=== PATIENT | female | born 1960 | race Two or more races ===

== ENCOUNTER 2022-05-15 10:35 | Emergency (ER) | payer OTHER ==
[~2022-05-15] VITALS: Ht 152.4 cm; Wt 85.8 kg
[2022-05-15 10:48] VITALS: BP 144/84
[2022-05-15 11:28] LABS: Basophils # (auto) 0.1 10 ^3/uL (0-0.2); Basophils % (auto) 0.7 % (0.0-2.0); Eosinophils # (auto) 0.1 10 ^3/uL (0-0.8); Eosinophils % (auto) 0.8 % (0.0-7.0); Hematocrit 42.1 % (36.0-46.0); Hemoglobin 13.9 g/dL (12.2-16.2); Lymphocytes # (auto) 2.8 10 ^3/uL (0.4-5.4); Lymphocytes % (auto) 25.5 % (10.0-50.0); Mean Corpuscular Hemoglobin 29.7 pg (28.0-32.0); Mean Corpuscular Hgb Conc. 32.9 g/dL (32.0-36.0); Mean Corpuscular Volume 90.5 fL (80.0-100.0); Monocytes # (auto) 0.5 10 ^3/uL (0-1.3); Monocytes % (auto) 4.4 % (0.0-12.0); Neutrophils # (auto) 7.5 10 ^3/uL (1.6-8.6); Neutrophils % (auto) 68.6 % (37.0-80.0); Red Blood Cells 4.66 10^6/uL (4.0-5.20); Red Cell Distribution Width 13.4 % (11.8-14.3)
[2022-05-15 11:29] LABS: Urine Bacteria FEW /hpf (None Seen); Urine Blood Negative /uL (Negative); Urine Specific Gravity 1.007 (1.001-1.035); Urine WBC 4 /hpf (0 - 5)
[2022-05-15 11:44] LABS: Albumin 3.7 g/dL (3.4-5.0); Calcium 9.1 mg/dL (8.5-10.1); Potassium 4.4 mmol/L (3.5-5.1)
[2022-05-15 11:47] LABS: BUN/Creatinine Ratio 19.4; Bilirubin, Total 0.6 mg/dL (0.2-1.0); Total Protein 6.8 g/dL (6.4-8.2)
== END 2022-05-15 22:05 | disposition left against medical advice (07) ==
LOC: ER 10:35
DX: R10.30 Lower abdominal pain, unspecified (principal); R19.7 Diarrhea, unspecified; R11.0 Nausea; R07.89 Other chest pain; Z53.21 Procedure and treatment not carried out due to patient leaving prior to being seen by health care provider
CPT/HCPCS: 36415; 80053; 81001; 83690; 85025; 93005

== ENCOUNTER → 2023-10-25 | Outpatient (CLI) | payer OTHER ==
[2023-10-25 08:19] LABS: Basophils # (auto) 0.1 10 ^3/uL (0-0.2); Basophils % (auto) 0.7 % (0.0-2.0); Eosinophils # (auto) 0.2 10 ^3/uL (0-0.8); Eosinophils % (auto) 1.8 % (0.0-7.0); Hematocrit 44.6 % (36.0-46.0); Hemoglobin 14.7 g/dL (12.2-16.2); Lymphocytes # (auto) 2.5 10 ^3/uL (0.4-5.4); Lymphocytes % (auto) 26.7 % (10.0-50.0); Mean Corpuscular Hemoglobin 30.1 pg (28.0-32.0); Mean Corpuscular Volume 91.2 fL (80.0-100.0); Monocytes # (auto) 0.4 10 ^3/uL (0-1.3); Monocytes % (auto) 4.1 % (0.0-12.0); Neutrophils # (auto) 6.2 10 ^3/uL (1.6-8.6); Neutrophils % (auto) 66.7 % (37.0-80.0); Nucleated Red Blood Cells % 0.1 %; Red Blood Cells 4.89 10^6/uL (4.0-5.20); Red Cell Distribution Width 14.3 % (11.8-14.3); White Blood Cell 9.3 10^3/uL (4.4-10.8)
[2023-10-25 08:36] LABS: Urine Bacteria FEW /hpf (None Seen); Urine Blood Negative /uL (Negative); Urine Clarity HAZY (Clear); Urine Color Yellow (Yellow); Urine Hyaline Cast FEW /lpf (0 - 2); Urine Mucus FEW (None Seen); Urine Protein, UAD Negative (Negative); Urine Urobilinogen Normal (Negative); Urine WBC 104 /hpf (0 - 5)
[2023-10-25 08:50] LABS: Alanine Aminotransferase 32 U/L (7-40); Albumin 4.8 g/dL (3.2-4.8); Alkaline Phosphatase 96 U/L (46-116); Anion Gap 7 (5-15); Aspartate Aminotransferase 19 U/L (13-40); BUN/Creatinine Ratio 20.3 (10.0-20.0); Bilirubin, Total 0.9 mg/dL (0.2-1.0); Blood Urea Nitrogen 14 mg/dL (9-23); Calcium 9.8 mg/dL (8.5-10.1); Carbon Dioxide 28 mmol/L (20-30); Chloride 106 mmol/L (98-107); Cholesterol 178 mg/dL (< 200); Glucose 139 mg/dL (74-106); HDL Cholesterol 53 mg/dL (40-59); LDL Cholesterol 115 mg/dL (< 100); Potassium 4.8 mmol/L (3.5-5.1); Sodium 141 mmol/L (136-145); Total Protein 7.1 g/dL (5.7-8.2); Triglycerides 188 mg/dL (< 150)
[2023-10-25 08:53] LABS: Folate (Folic Acid) > 24.00 ng/mL (>5.38)
[2023-10-25 09:08] LABS: Magnesium 2.1 mg/dL (1.6-2.6)
[2023-10-25 09:09] LABS: Uric Acid 5.5 mg/dL (3.1-7.8)
== END | disposition home or self-care (01) ==
LOC: LAB 08:00
PROVIDERS: ATTEND Internal Medicine
DX: E61.2 Magnesium deficiency (principal); R78.89 Finding of other specified substances, not normally found in blood; E78.9 Disorder of lipoprotein metabolism, unspecified; R68.89 Other general symptoms and signs; R94.6 Abnormal results of thyroid function studies; E79.0 Hyperuricemia without signs of inflammatory arthritis and tophaceous disease; R82.90 Unspecified abnormal findings in urine; R82.79 Other abnormal findings on microbiological examination of urine; R82.991 Hypocitraturia; E85.9 Amyloidosis, unspecified; D51.9 Vitamin B12 deficiency anemia, unspecified
CPT/HCPCS: 36415; 80053; 80061; 81001; 82306; 82607; 82746; 83036; 83735; 84443; 84550; 85025; 87086

== ENCOUNTER → 2024-02-19 | Outpatient (CLI) | payer OTHER ==
[2024-02-19 08:47] LABS: Basophils # (auto) 0.1 10 ^3/uL (0-0.2); Basophils % (auto) 0.8 % (0.0-2.0); Eosinophils # (auto) 1.4 10 ^3/uL (0-0.8); Hematocrit 41.2 % (36.0-46.0); Hemoglobin 14.1 g/dL (12.2-16.2); Lymphocytes # (auto) 2.8 10 ^3/uL (0.4-5.4); Lymphocytes % (auto) 25.2 % (10.0-50.0); Mean Corpuscular Hemoglobin 31.2 pg (28.0-32.0); Mean Corpuscular Hgb Conc. 34.2 g/dL (32.0-36.0); Monocytes # (auto) 0.4 10 ^3/uL (0-1.3); Monocytes % (auto) 3.4 % (0.0-12.0); Neutrophils # (auto) 6.3 10 ^3/uL (1.6-8.6); Neutrophils % (auto) 57.6 % (37.0-80.0); Nucleated Red Blood Cells % 0.1 %; Red Blood Cells 4.53 10^6/uL (4.0-5.20); Red Cell Distribution Width 14.1 % (11.8-14.3); White Blood Cell 10.9 10^3/uL (4.4-10.8)
[2024-02-19 09:10] LABS: Urine Bacteria FEW /hpf (None Seen); Urine Blood Negative /uL (Negative); Urine Budding Yeast OCCASIONAL /hpf (None Seen); Urine Clarity Clear (Clear); Urine Color Light-Yellow (Yellow); Urine Protein, UAD Negative (Negative); Urine Specific Gravity 1.018 (1.001-1.035); Urine Urobilinogen Normal (Negative); Urine WBC 13 /hpf (0 - 5); Urine pH 5.5 (5.0-9.0)
[2024-02-19 09:35] LABS: Alanine Aminotransferase 25 U/L (7-40); Albumin 4.2 g/dL (3.2-4.8); Alkaline Phosphatase 93 U/L (46-116); Anion Gap 7 (5-15); Aspartate Aminotransferase 15 U/L (13-40); BUN/Creatinine Ratio 24.2 (10.0-20.0); Bilirubin, Total 0.7 mg/dL (0.2-1.0); Blood Urea Nitrogen 16 mg/dL (9-23); Calcium 9.4 mg/dL (8.5-10.1); Carbon Dioxide 25 mmol/L (20-30); Chloride 109 mmol/L (98-107); Cholesterol 192 mg/dL (< 200); Glucose 165 mg/dL (74-106); HDL Cholesterol 49 mg/dL (40-59); LDL Cholesterol 121 mg/dL (< 100); Potassium 4.1 mmol/L (3.5-5.1); Sodium 141 mmol/L (136-145); Total Protein 6.4 g/dL (5.7-8.2); Triglycerides 251 mg/dL (< 150)
[2024-02-19 10:14] LABS: Uric Acid 6.1 mg/dL (3.1-7.8)
[2024-02-19 11:44] LABS: Folate (Folic Acid) 17.83 ng/mL (>5.38)
== END | disposition home or self-care (01) ==
LOC: LAB 08:17
PROVIDERS: ATTEND Internal Medicine
DX: R73.09 Other abnormal glucose (principal); R79.89 Other specified abnormal findings of blood chemistry; R68.89 Other general symptoms and signs; R94.4 Abnormal results of kidney function studies; E55.9 Vitamin D deficiency, unspecified; R82.90 Unspecified abnormal findings in urine; R82.79 Other abnormal findings on microbiological examination of urine; D51.9 Vitamin B12 deficiency anemia, unspecified; E61.2 Magnesium deficiency
CPT/HCPCS: 36415; 80053; 80061; 81001; 82306; 82607; 82746; 83036; 84443; 84550; 85025; 87086; 87088; 87147

== ENCOUNTER → 2024-05-01 | Outpatient (CLI) | payer OTHER ==
[2024-05-01 08:47] LABS: Basophils # (auto) 0.1 10 ^3/uL (0-0.2); Basophils % (auto) 0.5 % (0.0-2.0); Eosinophils # (auto) 1.4 10 ^3/uL (0-0.8); Eosinophils % (auto) 12.5 % (0.0-7.0); Hematocrit 44.3 % (36.0-46.0); Hemoglobin 15.1 g/dL (12.2-16.2); Lymphocytes # (auto) 2.8 10 ^3/uL (0.4-5.4); Lymphocytes % (auto) 25.2 % (10.0-50.0); Mean Corpuscular Hemoglobin 31.1 pg (28.0-32.0); Mean Corpuscular Volume 91.4 fL (80.0-100.0); Monocytes # (auto) 0.4 10 ^3/uL (0-1.3); Monocytes % (auto) 3.9 % (0.0-12.0); Neutrophils # (auto) 6.5 10 ^3/uL (1.6-8.6); Neutrophils % (auto) 57.9 % (37.0-80.0); Nucleated Red Blood Cells % 0.1 %; Platelet Count (auto) 259 10^3/uL (140-450); Red Blood Cells 4.85 10^6/uL (4.0-5.20); Red Cell Distribution Width 13.4 % (11.8-14.3); White Blood Cell 11.2 10^3/uL (4.4-10.8)
[2024-05-01 09:29] LABS: Alanine Aminotransferase 24 U/L (7-40); Alkaline Phosphatase 89 U/L (46-116); Anion Gap 8 (5-15); BUN/Creatinine Ratio 18.3 (10.0-20.0); Blood Urea Nitrogen 13 mg/dL (9-23); Calcium 9.9 mg/dL (8.7-10.4); Carbon Dioxide 26 mmol/L (20-30); Chloride 106 mmol/L (98-107); Glucose 128 mg/dL (74-106); LDL Cholesterol 103 mg/dL (< 100); Potassium 4.6 mmol/L (3.5-5.1); Sodium 140 mmol/L (136-145); Triglycerides 283 mg/dL (< 150)
[2024-05-01 09:30] LABS: Albumin 4.6 g/dL (3.2-4.8); Aspartate Aminotransferase 16 U/L (13-40); Bilirubin, Total 0.8 mg/dL (0.2-1.0); Cholesterol 181 mg/dL (< 200); HDL Cholesterol 46 mg/dL (40-59)
== END | disposition home or self-care (01) ==
LOC: LAB 08:18
PROVIDERS: ATTEND Internal Medicine
DX: E11.3219 Type 2 diabetes mellitus with mild nonproliferative diabetic retinopathy with macular edema, unspecified eye (principal); E78.00 Pure hypercholesterolemia, unspecified; E55.9 Vitamin D deficiency, unspecified; E66.8 Other obesity
CPT/HCPCS: 36415; 80053; 80061; 82306; 83036; 85025

== ENCOUNTER 2024-11-12 09:33 | Inpatient (IN) | payer OTHER ==
[~2024-11-12] VITALS: Ht 152.4 cm; Wt 88.5 kg
[~2024-11-12 09:33] MED LIST: GABA-1250 PO; METF-372 PO; SEMA2INJ3 SC
[2024-11-12 10:31] LABS: Urine Bacteria FEW /hpf (None Seen); Urine Blood 2+ /uL (Negative); Urine Budding Yeast OCCASIONAL /hpf (None Seen); Urine Clarity Clear (Clear); Urine Color Light-Yellow (Yellow); Urine Mucus FEW (None Seen); Urine Protein, UAD Negative (Negative); Urine Specific Gravity 1.014 (1.001-1.035); Urine Squamous Epithelial Cell FEW /hpf (<5); Urine Urobilinogen Normal (Negative); Urine WBC 13 /HPF (0-5)
[2024-11-12 10:40] LABS: Basophils # (auto) 0.1 10 ^3/uL (0-0.2); Basophils % (auto) 0.4 % (0.0-2.0); Eosinophils # (auto) 0.6 10 ^3/uL (0-0.8); Eosinophils % (auto) 4.9 % (0.0-7.0); Hematocrit 43.8 % (36.0-46.0); Hemoglobin 14.5 g/dL (12.2-16.2); Lymphocytes # (auto) 2.6 10 ^3/uL (0.4-5.4); Lymphocytes % (auto) 20.3 % (10.0-50.0); Mean Corpuscular Hemoglobin 30.9 pg (28.0-32.0); Mean Corpuscular Hgb Conc. 33.1 g/dL (32.0-36.0); Mean Corpuscular Volume 93.3 fL (80.0-100.0); Monocytes # (auto) 0.4 10 ^3/uL (0-1.3); Monocytes % (auto) 3.4 % (0.0-12.0); Neutrophils # (auto) 9.2 10 ^3/uL (1.6-8.6); Platelet Count (auto) 236 10^3/uL (140-450); Red Blood Cells 4.69 10^6/uL (4.0-5.20); Red Cell Distribution Width 13.6 % (11.8-14.3)
--- NOTE | 2024-11-12 10:41 | ED.PDOC ---
General HPI Comments 64 year old female presents to the ED with a chief complaint of LT flank pain onset today. Patient states she woke up noticed experiencing LT flank pain, urinary urgency, nausea. Patient has experienced kidney stones in the past and states pain feels similar. She had an appointment with her PCP this morning, was sent to ED due to pain. Denies any PMHx as well as vomiting, diarrhea, fever, chills, dysuria, hematuria, chest pain, shortness of breath, dizziness. No other symptoms or modifying factors present at this time. Chief Complaint: Urinary Time Seen by MD: 10:20 Reviewed notes: Medications, Allergies Allergies: Coded Allergies: NO KNOWN ALLERGIES (Unverified , 05/15/22) Information Source: Patient, Relative Mode of Arrival: Ambulatory Severity: Moderate Timing: Hours Duration: Since onset Prehospital treatment: None Onset: Spontaneous Symptoms: Urgency, Other History of: Kidney stone Location: (L)Flank Modifying factors: None associated signs and symptoms: Nausea, Flank Pain, Urgency Past Medical History PAST MEDICAL HISTORY: Kidney Stones Surgical History: Denies all surgeries PORTFOLIO ADMINISTRATOR History: No Pertinent PORTFOLIO ADMINISTRATOR History Family History Family History: Reviewed,noncontributory to illness, No family hx of Cancer, No family hx of DM, No family hx of Heart sony, No family hx of HTN, No family hx ofKidney sony, No family hx of Liver sony, No family hx of Lung sony, No family hx of Stroke Social History Smoker: Non-Smoker Alcohol: Denies ETOH Use Drugs: Denies Drug Use Lives In: Home Constitutional: denies: chills, diaphoresis, fatigue, fever, malaise, sweats, weakness, others EENTM: denies: blurred vision, double vision, ear bleeding, ear discharge, ear drainage, ear pain, ear ringing, eye pain, eye redness, hearing loss, mouth pain, mouth swelling, nasal discharge, nose bleeding, nose congestion, nose pain, photophobia, tearing, throat pain, throat swelling, voice changes, others Respiratory: denies: cough, hemoptysis, orthopnea, SOB at rest, shortness of breath, SOB with excertion, stridor, wheezing, others Cardiovascular: denies: chest pain, dizzy spells, diaphoresis, Dyspnea on exertion, edema, irregular heart beat, left arm pain, lightheadedness, palpitations, PND, syncope, others Gastrointestinal: reports: nausea; denies: abdomen distended, abdominal pain, blood streaked bowels, constipated, diarrhea, dysphagia, difficulty swallowing, hematemesis, melena, poor appetite, poor fluid intake, rectal bleeding, rectal pain, vomiting, others Genitourinary: reports: flank pain, urgency; denies: abnormal vagina bleeding, burning, dyspareunia, dysuria, frequency, hematuria, incontinence, pain, , vagina discharge, others Neurological: denies: dizziness, fainting, headache, left sided numbness, left sided weakness, numbness, paresthesia, pre-existing deficit, right sided numbness, right sided weakness, seizure, speech problems, tingling, tremors, weakness, others Musculoskeletal: denies: back pain, gout, joint pain, joint swelling, muscle pain, muscle stiffness, neck pain, others Integumetry: denies: bruises, change in color, change in hair/nails, dryness, laceration, lesions, lumps, rash, wounds, others Allergic/Immunocompromised: denies: Difficulty Healing, Frequent Infections, Hives, Itching, others Hematologic/Lymphatic: denies: anemia, blood clots, easy bleeding, easy bruising, swollen glands, others Endocrine: denies: excessive hunger, excessive sweating, excessive thirst, excessive urination, flushing, intolerance to cold, intolerance to heat, unexplained weight gain, unexplained weight loss, others Psychiatric: denies: anxiety, bipolar disorder, depression, hopeless, panic disorder, schizophrenia, sleepless, suicidal, others All Other Systems: Reviewed and Negative Physical Exam General Appearance: Moderate Distress, Normal, Other (appears uncomfortable) HEENT: Normal ENT Inspection, Pharynx Normal, TMs Normal Neck: Full Range of Motion, Non-Tender, Normal, Normal Inspection Respiratory: Chest Non-Tender, Lungs Clear, No Accessory Muscle Use, No Respiratory Distress, Normal Breath Sounds Cardiovascular: No Edema, No JVD, No Murmur, No Gallop, Normal Peripheral Pulses, Regular Rate/Rhythm Breast Exam: Deferred Gastrointestinal: No Organomegaly, Tenderness (LT CVA) Genitalia: Deferred Pelvic: Deferred Rectal: Deferred Extremities: No calf tenderness, Normal capillary refill, Normal inspection, Normal range of motion, Non-tender, No pedal edema Musculoskeletal : Apperance: Normal Neurologic: Alert, resort manager II-XII nml as Tested, No Motor Deficits, Normal Affect, Normal Mood, No Sensory Deficits Cerebellar Function: Normal Reflexes: Normal Skin: Dry, Normal Color, Warm Lymphatic: No Adenopathy Was a procedure done? Was a procedure done?: No Differential Diagnosis Kidney stone (Female): Cholelithiasis, Musculoskeletal pain, Ovarian torsion, Pancreatitis, Pyelonephritis, Renal failure, Strain, Urinary obstruction, Urolithiasis Kidney stone (Male): N/A Penile/Scrotal: N/A Urinary Problem (Male): N/A Urinary Problem (Female): PID, Pyelonephritis, Urinary retention, Urolithiasis X-Ray, Labs, Meds, VS Vital Signs Date Time Temp Pulse Resp B/P (MAP) Pulse Ox O2 Delivery O2 Flow Rate FiO2 11/12/24 11:05 90 16 98 Room Air* 0 21 11/12/24 10:58 90 16 139/105 11/12/24 10:51 98.0 90 16 139/105 (116) 97 98.0 11/12/24 10:51 90 16 97 Room Air 11/12/24 10:07 97.8 92 18 144/63 (90) 98 97.8 Lab Test 11/12/24 11:53 11/12/24 10:20 11/12/24 10:00 Range/Units Troponin I High Sensitivity < 3 L < 3 L </=34 ng/L White Blood Count 13.0 H 4.4-10.8 10^3/uL Red Blood Count 4.69 4.0-5.20 10^6/uL Hemoglobin 14.5 12.2-16.2 g/dL Hematocrit 43.8 36.0-46.0 % Mean Corpuscular Volume 93.3 80.0-100.0 fL Mean Corpuscular Hemoglobin 30.9 28.0-32.0 pg Mean Corpuscular Hemoglobin Concent 33.1 32.0-36.0 g/dL Red Cell Distribution Width 13.6 11.8-14.3 % Platelet Count 236 140-450 10^3/uL Mean Platelet Volume 9.5 6.9-10.8 fL Neutrophils (%) (Auto) 71.0 37.0-80.0 % Lymphocytes (%) (Auto) 20.3 10.0-50.0 % Monocytes (%) (Auto) 3.4 0.0-12.0 % Eosinophils (%) (Auto) 4.9 0.0-7.0 % Basophils (%) (Auto) 0.4 0.0-2.0 % Neutrophils # (Auto) 9.2 H 1.6-8.6 10 ^3/uL Lymphocytes # (Auto) 2.6 0.4-5.4 10 ^3/uL Monocytes # (Auto) 0.4 0-1.3 10 ^3/uL Eosinophils # (Auto) 0.6 0-0.8 10 ^3/uL Basophils # (Auto) 0.1 0-0.2 10 ^3/uL Nucleated Red Blood Cells 0.0 % Sodium Level 140 136-145 mmol/L Potassium Level 4.6 3.5-5.1 mmol/L Chloride Level 111 H 98-107 mmol/L Carbon Dioxide Level 20 20-31 mmol/L Anion Gap 9 5-15 Blood Urea Nitrogen 15 9-23 mg/dL Creatinine 0.66 0.550-1.02 mg/dL Glomerular Filtration Rate Calc 97 >90 mL/min BUN/Creatinine Ratio 22.7 H 10.0-20.0 Serum Glucose 143 H 74-106 mg/dL Lactic Acid Level 1.8 0.4-2.0 mmol/L Calcium Level 9.6 8.7-10.4 mg/dL Urine Color Light-yellow Yellow Urine Clarity Clear Clear Urine pH 5.0 5.0-9.0 Urine Specific [place] 1.014 1.001-1.035 Urine Protein Negative Negative Urine Ketones Negative Negative Urine Blood 2+ H Negative /uL Urine Nitrite 1+ H Negative Urine Bilirubin Negative Negative Urine Urobilinogen Normal Negative mg/dL Urine Leukocyte Esterase 2+ Negative /uL Urine RBC 29 0 - 4 /hpf Urine Microscopic WBC 13 H 0-5 /HPF Urine Squamous Epithelial Cells Few <5 /hpf Urine Bacteria Few H None Seen /hpf Urine Mucus Few None Seen Urine Yeast (Budding) Occasional None Seen /hpf Urine Glucose Normal Normal mg/dL Current Medications Medications (Trade) Dose Ordered Sig/Kenji Route Start Time Stop Time Status Last Admin Sodium Chloride 1,000 ml @ 1,000 mls/hr Q1H ONCE IV 11/12/24 10:30 11/12/24 11:29 DC 11/12/24 10:55 Ondansetron HCl (Zofran) 4 mg ONCE ONCE IV 11/12/24 10:30 11/12/24 10:37 DC 11/12/24 10:58 Morphine Sulfate 4 mg ONCE ONCE IV 11/12/24 10:30 11/12/24 10:37 DC 11/12/24 10:58 Ketorolac Tromethamine (Toradol Injection) 15 mg ONCE ONCE IV 11/12/24 10:30 11/12/24 10:37 DC 11/12/24 10:58 [place] [id number] Ph: [phone] DIAGNOSTIC IMAGING Diagnostic Imaging Report : [id number] Signed PATIENT: IVONNE MARTINEZ ACCT: [id number] UNIT: [id number] : 1960 LOC: ER ROOM / BED: / AGE / SEX: 64 / F ADM STATUS: REG ER SERVICE 1022 ORDERING PHYSICIAN: JM GILL MD PROCEDURE(s): ABPL - CT AB PEL WO CON-NO ORAL OR IV REASON: left flank pain ORDER NUMBER(s): [id number], ACCESSION NUMBER(s): [id number] CT ABDOMEN AND PELVIS WITHOUT CONTRAST CLINICAL HISTORY: left flank pain TECHNIQUE: Multiple contiguous axial images of the abdomen and pelvis without intravenous contrast. The images were reformatted degenerate coronal and sagittal reconstructions. All CT scans at this medical facility are performed using dose modulation techniques as appropriate to a performed exam including the following:Automated exposure control was utilized; adjustment of the MA and/or KV according to patient size; and use of iterative reconstruction technique. Radiation Dose Information: CT Dose: CTDI volume is 20.81 mGy. Dose-length product is 1229.31 mGy*cm Comparison: None FINDINGS: Evaluation of the abdomen and pelvis is limited without intravenous contrast. There is a 1 cm calculus at the left ureteropelvic junction. There is moderate left hydronephrosis. There is no right renal calculus. There is no right hydronephrosis. There is no evidence of a distal ureteral calculus or hydroureter. There is a 2.5 cm left renal cyst. The liver, gallbladder, pancreas, adrenal glands, and spleen appear within normal limits. There is no gross evidence of abdominal lymphadenopathy. There is no free fluid or free air. The stomach grossly appears unremarkable. The small and large bowel loops demonstrate normal caliber and distribution. There are few scattered diverticula in the colon without evidence of acute diverticulitis. The abdominal aorta and IVC appear within normal limits. The bladder appears unremarkable for the degree of distention. Uterus is surgically absent.. There is no gross evidence of a pelvic mass. There is no free fluid collection. Lung bases are clear. There is no acute osseous abnormality. IMPRESSION: 1. 1 cm calculus at the left ureteropelvic junction. There is moderate left hydronephrosis. HS:Y ATED BY: DEVAN ROMERO MD DICTATED DATE/TIME: 11/12/24 1139 SIGNED BY: DEVAN ROMERO MD SIGNED DATE/TIME: 11/12/24 1139 CC: Time of 1ST Reevaluation: 10:50 Reevaluation 1ST: Unchanged Patient Education/Counseling: Diagnosis, Treatment, Prognosis Family Education/Counseling: Diagnosis, Treatment, Prognosis Additional Information The following tests were ordered, and results were reviewed by me: BMP, CBC, TROP-x3, UA, LA W/ REFLEX, BLOOD CULTURE, CT AB PEL WO CON Additional Information was gathered from interviewing the following independent historians: daughter I reviewed and agreed with the following test results read by other providers: CT AB PEL WO CON I discussed treatment and results with medical personnel and: Patient, daughter Comprehensive systems review obtained and negative except for what is stated in the HPI. Departure 1 Departure Time of Disposition: 13:13 (Patient presented with abdominal pain that was concerning for possible appendicits, gastritis, cholecystitis, colitis, gastroenteritis, sbo, or orther possible surgical emergency. Data: 1. I ordered and reviewed the result of at least 3 labs including a CBC, BMP, and Urinalysis. 2. I independently interpreted the following tests: CT Abdoment and Pelvis is concerning for left renal colic .Risk:This patient has a high risk of morbidity due to further diagnostic testing or treatment and may suffer from an acute abdominal process disorder. Workup reveals left renal colic and patient should be admitted for further workup. and possible expert consultation. 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 This critical care time included obtaining a history; examining the patient; pulse oximetry; ordering and review of studies; arranging urgent treatment with development of a management plan; evaluation of patient's response to treatment; frequent reassessment; and, discussions with other providers. This critical care time was performed to assess and manage the high probability of imminent, life-threatening deterioration that could result in multi-organ failure. It was exclusive of separately billable procedures and treating other patients and teaching time. Please see my other sections and the rest of the note for further information on patient assessment and treatment. Stability Stability form required: No I personally scribed for JM GILL MD ([email or web address]) on 11/12/24 at 10:41. Electronically submitted by Izzy Moreno ([email or web address]). I personally scribed for JM GILL MD ([email or web address]) on 11/12/24 at 10:45. Electronically submitted by Izzy Moreno ([email or web address]). I personally scribed for JM GILL MD ([email or web address]) on 11/12/24 at 12:55. Electronically submitted by Izzy Moreno ([email or web address]). JM GILL MD Nov 12, 2024 10:41
[2024-11-12 10:44] LABS: Potassium 4.6 mmol/L (3.5-5.1); Sodium 140 mmol/L (136-145)
[2024-11-12 10:45] LABS: Anion Gap 9 (5-15)
[2024-11-12 10:46] LABS: Calcium 9.6 mg/dL (8.7-10.4); Carbon Dioxide 20 mmol/L (20-31); Chloride 111 mmol/L (98-107)
[2024-11-12 10:51] LABS: BUN/Creatinine Ratio 22.7 (10.0-20.0); Blood Urea Nitrogen 15 mg/dL (9-23)
[2024-11-12 10:52] LABS: Glucose 143 mg/dL (74-106)
[2024-11-12] MEDS: SODIUM CHLORIDE 0.9% 1,000 ML IV ONE ×4 (10:55→17:19)
[2024-11-12] MEDS: MORPHINE SULFATE 4 MG/ML SYR/VIAL IV ONE ×2 (10:58→13:55)
[2024-11-12] MEDS: ONDANSETRON HCL 4 MG/2 ML VIAL IV ONE (10:58)
[2024-11-12] MEDS: KETOROLAC TROMETH 30 MG/ML 1ML VIAL IV ONE (10:58)
[2024-11-12 11:05] VITALS: PULSE 90; RESP 16; O2SAT 98
--- NOTE | 2024-11-12 11:41 | DVH ---
CT ABDOMEN AND PELVIS WITHOUT CONTRAST CLINICAL HISTORY: left flank pain TECHNIQUE: Multiple contiguous axial images of the abdomen and pelvis without intravenous contrast. T he images were reformatted degenerate coronal and sagittal reconstructions. All CT scans at this medical facility are performed using dose modulation techniques as appropriate t o a performed exam including the following:Automated exposure control was utilized; adjustment of the MA and/or KV according to patient size; and use of iterative reconstruction technique. Radiation Dose Information: CT Dose: CTDI volume is 20.81 mGy. Dose-length product is 1229.31 mGy*cm Comparison: None FINDINGS: Evaluation of the abdomen and pelvis is limited without intravenous contrast. There is a 1 cm calculus at the left ureteropelvic junction. There is moderate left hydronephrosis. T here is no right renal calculus. There is no right hydronephrosis. There is no evidence of a distal ureteral calculus or hydroureter. There is a 2.5 cm left renal cyst. The liver, gallbladder, pancreas, adrenal glands, and spleen appear within normal limits. There is no gross evidence of abdominal lymphadenopathy. There is no free fluid or free air. The stomach grossly appears unremarkable. The small and large bowel loops demonstrate normal caliber and distribution. There are few scattered diverticula in the colon without evidence of acute diverti culitis. The abdominal aorta and IVC appear within normal limits. The bladder appears unremarkable for the degree of distention. Uterus is surgically absent.. There i s no gross evidence of a pelvic mass. There is no free fluid collection. Lung bases are clear. There is no acute osseous abnormality. IMPRESSION: 1. 1 cm calculus at the left ureteropelvic junction. There is moderate left hydronephrosis. HS:Y
[2024-11-12] MEDS: TAMSULOSIN HYDROCHLORIDE 0.4 MG CAP PO ONE (13:46)
[2024-11-12] MEDS: cefTRIAXone 1GM/50ML D5W 50 ML IV ONE (13:52)
[2024-11-12] MEDS: HYDROcodone-ACET 10/325MG TAB PO ONE ×2 (14:13→19:50)
--- NOTE | 2024-11-12 15:57 | DVHHP2 ---
Admitting Diagnosis: flank pain History of Present Illness HPI 64 F with L flank pain. Was sent from pcp office for the pain. ct shows L obstructing 1 cm upj stone. she [facility] be [facility] for iv abx and hydration with urology consult and supportive care/pain control. Review of Systems Constitutional: No symptom reported Eyes: No symptom reported Cardiovascular: No symptom reported Gastrointestinal: No symptom reported Genitourinary: Pain H&P Exam Vital Signs Vital Signs Date Time Temp Pulse Resp B/P (MAP) Pulse Ox O2 Delivery O2 Flow Rate FiO2 11/12/24 13:55 85 16 93/39 11/12/24 11:05 98 Room Air* 0 21 11/12/24 10:51 98.0 98.0 General Appeara: Well developed Head Exam: Normal inspection Neck Exam: Normal inspection Pulmonary/Respiratory: Normal inspection, Normal breath sounds Labs/Xrays Labs Test 11/12/24 11:53 11/12/24 10:20 11/12/24 10:00 Range/Units Troponin I High Sensitivity < 3 L </=34 ng/L White Blood Count 13.0 H 4.4-10.8 10^3/uL Red Blood Count 4.69 4.0-5.20 10^6/uL Hemoglobin 14.5 12.2-16.2 g/dL Hematocrit 43.8 36.0-46.0 % Mean Corpuscular Volume 93.3 80.0-100.0 fL Mean Corpuscular Hemoglobin 30.9 28.0-32.0 pg Mean Corpuscular Hemoglobin Concent 33.1 32.0-36.0 g/dL Red Cell Distribution Width 13.6 11.8-14.3 % Platelet Count 236 140-450 10^3/uL Mean Platelet Volume 9.5 6.9-10.8 fL Neutrophils (%) (Auto) 71.0 37.0-80.0 % Lymphocytes (%) (Auto) 20.3 10.0-50.0 % Monocytes (%) (Auto) 3.4 0.0-12.0 % Eosinophils (%) (Auto) 4.9 0.0-7.0 % Basophils (%) (Auto) 0.4 0.0-2.0 % Neutrophils # (Auto) 9.2 H 1.6-8.6 10 ^3/uL Lymphocytes # (Auto) 2.6 0.4-5.4 10 ^3/uL Monocytes # (Auto) 0.4 0-1.3 10 ^3/uL Eosinophils # (Auto) 0.6 0-0.8 10 ^3/uL Basophils # (Auto) 0.1 0-0.2 10 ^3/uL Nucleated Red Blood Cells 0.0 % Sodium Level 140 136-145 mmol/L Potassium Level 4.6 3.5-5.1 mmol/L Chloride Level 111 H 98-107 mmol/L Carbon Dioxide Level 20 20-31 mmol/L Anion Gap 9 5-15 Blood Urea Nitrogen 15 9-23 mg/dL Creatinine 0.66 0.550-1.02 mg/dL Glomerular Filtration Rate Calc 97 >90 mL/min BUN/Creatinine Ratio 22.7 H 10.0-20.0 Serum Glucose 143 H 74-106 mg/dL Lactic Acid Level 1.8 0.4-2.0 mmol/L Calcium Level 9.6 8.7-10.4 mg/dL Urine Color Light-yellow Yellow Urine Clarity Clear Clear Urine pH 5.0 5.0-9.0 Urine Specific [place] 1.014 1.001-1.035 Urine Protein Negative Negative Urine Ketones Negative Negative Urine Blood 2+ H Negative /uL Urine Nitrite 1+ H Negative Urine Bilirubin Negative Negative Urine Urobilinogen Normal Negative mg/dL Urine Leukocyte Esterase 2+ Negative /uL Urine RBC 29 0 - 4 /hpf Urine Microscopic WBC 13 H 0-5 /HPF Urine Squamous Epithelial Cells Few <5 /hpf Urine Bacteria Few H None Seen /hpf Urine Mucus Few None Seen Urine Yeast (Budding) Occasional None Seen /hpf Urine Glucose Normal Normal mg/dL Assessment/Plan Primary Diagnosis 1) L UPJ stone 2) UTI 3) Pain 2/2 above plan admit tele, iv abx, cultures, urology consult, ivf hydration, pain control, antiemetics, daily labs, will follow Plan discussed with: Other (n) DARIUS SANTORO MD Nov 12, 2024 15:57
[2024-11-12] MEDS ORDERED: MORPHINE SULFATE INJ 2 MG/ml SYRG IV PRN (16:00)
[2024-11-12] MEDS ORDERED: NITROGLYCERIN 0.4 MG SL TAB SL PRN (16:00)
[2024-11-12 18:10] VITALS: BP 108/53; PULSE 111; RESP 18; TEMP 99.1; O2SAT 95
[2024-11-12] MEDS ORDERED: ATOR20TA PO (18:50)
[2024-11-12] MEDS ORDERED: MELO7.5T7 PO (18:50)
[2024-11-12] MEDS ORDERED: GLUC500T48 PO (18:50)
[2024-11-12] MEDS ORDERED: ALEN70TA74 PO (18:50)
[2024-11-12] MEDS ORDERED: METF-370 PO (18:50)
[2024-11-12] MEDS: HYDROmorphone HCL 2 MG/ML VL/or syr IV ONE (18:58)
[2024-11-12 20:00] VITALS: BP 101/52; PULSE 116; RESP 19; TEMP 98.9; O2SAT 95
[2024-11-12 20:01] LABS: INR 1.05 (0.9-1.15); Prothrombin Time 11.1 sec (9.3-11.8)
[2024-11-12] MEDS: PIPERACILLIN-TAZOB 3.375GM 100 ML IV ONE (20:16)
[2024-11-12] MEDS ORDERED: ACETAMINOPHEN 325 MG TAB PO PRN (23:15)
[2024-11-12] MEDS: ACETAMINOPHEN IV 100 ML IV ONE (23:26)
[2024-11-12] MEDS: ACETAMINOPHEN IV 1000 MG/100ML (10MG/ML) IV ONE (23:29)
[2024-11-12 23:58] VITALS: PULSE 123; RESP 25; O2SAT 96
[2024-11-13] VITALS (61 sets, daily range): BP systolic 77–128; BP diastolic 38–79; PULSE 60–119; RESP 13–36; TEMP 97.2–100.3; O2SAT 95–100
[2024-11-13] MEDS: SODIUM CHLORIDE 0.9% 1,000 ML IV ONE (01:17)
[2024-11-13] MEDS: NOREPINEPHRINE 8 MG/250ML KIT 250 ML IV ONE (03:18)
[2024-11-13] MEDS: HYDROmorphone HCL 2 MG/ML VL/or syr IV PRN (03:55)
[2024-11-13 04:28] LABS: Basophils # (auto) 0 10 ^3/uL (0-0.2); Basophils % (auto) 0.1 % (0.0-2.0); Eosinophils # (auto) 0 10 ^3/uL (0-0.8); Eosinophils % (auto) 0.1 % (0.0-7.0); Hematocrit 33.3 % (36.0-46.0); Lymphocytes # (auto) 0.7 10 ^3/uL (0.4-5.4); Lymphocytes % (auto) 3.1 % (10.0-50.0); Mean Corpuscular Hemoglobin 31.3 pg (28.0-32.0); Mean Corpuscular Hgb Conc. 32.9 g/dL (32.0-36.0); Mean Corpuscular Volume 95.2 fL (80.0-100.0); Monocytes # (auto) 0.4 10 ^3/uL (0-1.3); Monocytes % (auto) 1.7 % (0.0-12.0); Neutrophils # (auto) 20.2 10 ^3/uL (1.6-8.6); Platelet Count (auto) 142 10^3/uL (140-450); Red Cell Distribution Width 13.9 % (11.8-14.3); White Blood Cell 21.3 10^3/uL (4.4-10.8)
[2024-11-13 04:39] LABS: Anion Gap 10 (5-15); Sodium 139 mmol/L (136-145)
[2024-11-13 04:45] LABS: BUN/Creatinine Ratio 16.8 (10.0-20.0); Blood Urea Nitrogen 17 mg/dL (9-23)
[2024-11-13 04:46] LABS: Calcium 7.9 mg/dL (8.7-10.4); Carbon Dioxide 18 mmol/L (20-31); Chloride 111 mmol/L (98-107); Glucose 198 mg/dL (74-106); Potassium 3.5 mmol/L (3.5-5.1)
[2024-11-13] MEDS: NOREPINEPHRINE 8 MG/250ML KIT 250 ML IV SCH (04:53)
--- NOTE | 2024-11-13 06:59 | DVHINCON2 ---
Date of service: Nov 13, [address] Bertrand Reason for Consultation obstructing kidney stone History of Present Illness History Source: Patient, RN Notes, MD Notes, Old Records Exam Limitations: No limitations HPI 64 yo female with PMH of kidney stones c/o of left flank pain. Her PCP had recommended she seek treatment at local hospital. She was found to be septic with an obstructing UPJ stone with moderate hydronephrosis on the left. She is admitted to the ICU. She is febrile and tachycardic. WBC 21.3 Cr 1.01 Preliminary BCX are positive for GNRs. Pain is mostly controlled. Home Meds Reported Medications Glucosamine Hydrochloride (GLUCOSAMINE) 500 Mg Tab, 500 MG PO, TAB 11/12/24 Meloxicam (Meloxicam) 7.5 Mg Tab, 1 TAB PO DAILY, #30 TAB 2 Refills 11/12/24 Alendronate Sodium (Alendronate Sodium) 70 Mg Tab, 1 TAB PO QWEEKLY, #4 TAB 3 Refills 11/12/24 Atorvastatin Calcium (Lipitor) 20 Mg Tab, 1 TAB PO DAILY, #90 TAB 1 Refill 11/12/24 Semaglutide (Ozempic) 2 Mg/3 Ml Inj, 2 MG SC, INJ 11/12/24 Metformin Hydrochloride (Metformin Hcl) 500 Mg Tab, 500 MG PO DAILY for 30 Days, MG 11/12/24 Past Medical History Patient Family History: FH: hepatic cirrhosis G8 FATHER Review of Systems Constitutional: Fever Gastrointestinal: Nausea Genitourinary: Pain H&P Exam Vital Signs Vital Signs Date Time Temp Pulse Resp B/P (MAP) Pulse Ox O2 Delivery O2 Flow Rate FiO2 11/13/24 06:44 100.0 100.0 11/13/24 06:30 103 14 99 11/13/24 06:00 Nasal Cannula* 5 40 General Appeara: Well developed, Well nourished, Normal Appearance, Obese Neuro/Mental St: Alert, Oriented Appearance: Appropriate appearance, Appropriate insight Eye contact/ Speech: Cooperative, Good eye contact, Normal speech Skin Exam: Normal inspection, Normal color, Warm/dry Labs/Xrays [address] [address] Ph: [phone] DIAGNOSTIC IMAGING Diagnostic Imaging Report : [id number] Signed PATIENT: IVONNE MARTINEZ ACCT: [id number] UNIT: [id number] : 1960 LOC: ER ROOM / BED: / AGE / SEX: 64 / F ADM STATUS: REG ER SERVICE 1022 ORDERING PHYSICIAN: JM JAMISON MD PROCEDURE(s): ABPL - CT AB PEL WO CON-NO ORAL OR IV REASON: left flank pain ORDER NUMBER(s): [id number], ACCESSION NUMBER(s): [id number] CT ABDOMEN AND PELVIS WITHOUT CONTRAST CLINICAL HISTORY: left flank pain TECHNIQUE: Multiple contiguous axial images of the abdomen and pelvis without intravenous contrast. The images were reformatted degenerate coronal and sagittal reconstructions. All CT scans at this medical facility are performed using dose modulation techniques as appropriate to a performed exam including the following:Automated exposure control was utilized; adjustment of the MA and/or KV according to patient size; and use of iterative reconstruction technique. Radiation Dose Information: CT Dose: CTDI volume is 20.81 mGy. Dose-length product is 1229.31 mGy*cm Comparison: None FINDINGS: Evaluation of the abdomen and pelvis is limited without intravenous contrast. There is a 1 cm calculus at the left ureteropelvic junction. There is moderate left hydronephrosis. There is no right renal calculus. There is no right hydronephrosis. There is no evidence of a distal ureteral calculus or hydroureter. There is a 2.5 cm left renal cyst. The liver, gallbladder, pancreas, adrenal glands, and spleen appear within normal limits. There is no gross evidence of abdominal lymphadenopathy. There is no free fluid or free air. The stomach grossly appears unremarkable. The small and large bowel loops demonstrate normal caliber and distribution. There are few scattered diverticula in the colon without evidence of acute diverticulitis. The abdominal aorta and IVC appear within normal limits. The bladder appears unremarkable for the degree of distention. Uterus is surgically absent.. There is no gross evidence of a pelvic mass. There is no free fluid collection. Lung bases are clear. There is no acute osseous abnormality. IMPRESSION: 1. 1 cm calculus at the left ureteropelvic junction. There is moderate left hydronephrosis. HS:Y ATED BY: DEVAN ROMERO MD DICTATED DATE/TIME: 11/12/24 1139 SIGNED BY: DEVAN ROMERO MD SIGNED DATE/TIME: 11/12/24 1139 CC: Labs Test 11/13/24 03:40 11/13/24 01:29 11/12/24 19:14 11/12/24 11:53 Range/Units White Blood Count 21.3 #H 4.4-10.8 10^3/uL Red Blood Count 3.50 L 4.0-5.20 10^6/uL Hemoglobin 11.0 #L 12.2-16.2 g/dL Hematocrit 33.3 #L 36.0-46.0 % Mean Corpuscular Volume 95.2 80.0-100.0 fL Mean Corpuscular Hemoglobin 31.3 28.0-32.0 pg Mean Corpuscular Hemoglobin Concent 32.9 32.0-36.0 g/dL Red Cell Distribution Width 13.9 11.8-14.3 % Platelet Count 142 140-450 10^3/uL Mean Platelet Volume 9.2 6.9-10.8 fL Neutrophils (%) (Auto) 95.0 H 37.0-80.0 % Lymphocytes (%) (Auto) 3.1 L 10.0-50.0 % Monocytes (%) (Auto) 1.7 0.0-12.0 % Eosinophils (%) (Auto) 0.1 0.0-7.0 % Basophils (%) (Auto) 0.1 0.0-2.0 % Neutrophils # (Auto) 20.2 H 1.6-8.6 10 ^3/uL Lymphocytes # (Auto) 0.7 0.4-5.4 10 ^3/uL Monocytes # (Auto) 0.4 0-1.3 10 ^3/uL Eosinophils # (Auto) 0 0-0.8 10 ^3/uL Basophils # (Auto) 0 0-0.2 10 ^3/uL Nucleated Red Blood Cells 0.0 % Sodium Level 139 136-145 mmol/L Potassium Level 3.5 3.5-5.1 mmol/L Chloride Level 111 H 98-107 mmol/L Carbon Dioxide Level 18 L 20-31 mmol/L Anion Gap 10 5-15 Blood Urea Nitrogen 17 9-23 mg/dL Creatinine 1.01 # 0.550-1.02 mg/dL Glomerular Filtration Rate Calc 62 >90 mL/min BUN/Creatinine Ratio 16.8 10.0-20.0 Serum Glucose 198 H 74-106 mg/dL Calcium Level 7.9 L 8.7-10.4 mg/dL POC Glucose 180 H 70-106 mg/dl Prothrombin Time 11.1 9.3-11.8 sec Prothrombin Time INR 1.05 0.9-1.15 Troponin I High Sensitivity < 3 L </=34 ng/L Test 11/12/24 10:20 11/12/24 10:00 Range/Units Lactic Acid Level 1.8 0.4-2.0 mmol/L Urine Color Light-yellow Yellow Urine Clarity Clear Clear Urine pH 5.0 5.0-9.0 Urine Specific [place] 1.014 1.001-1.035 Urine Protein Negative Negative Urine Ketones Negative Negative Urine Blood 2+ H Negative /uL Urine Nitrite 1+ H Negative Urine Bilirubin Negative Negative Urine Urobilinogen Normal Negative mg/dL Urine Leukocyte Esterase 2+ Negative /uL Urine RBC 29 0 - 4 /hpf Urine Microscopic WBC 13 H 0-5 /HPF Urine Squamous Epithelial Cells Few <5 /hpf Urine Bacteria Few H None Seen /hpf Urine Mucus Few None Seen Urine Yeast (Budding) Occasional None Seen /hpf Urine Glucose Normal Normal mg/dL Microbiology Date/Time Source Procedure Growth Status 11/12/24 10:10 Blood Blood Culture - Preliminary Resulted Assessment/Plan Problem List: (1) Hydronephrosis (2) Renal colic on left side (3) Sepsis (4) Bacteremia (5) Obstruction of ureteropelvic junction (UPJ) due to stone Plan NPO consult IR for left nephrostomy placement abx per primary pain meds prn outpt ESWL and stent to be arranged after resolution of infection. Plan discussed with: Patient, Other MANUEL LICEA DIGITAL PRODUCTION MANAGER Nov 13, 2024 06:59
[2024-11-13] MEDS: PIPERACILLIN-TAZOB 3.375GM 100 ML IV SCH (07:10)
--- NOTE | 2024-11-13 07:33 | DVHPN2 ---
Progress Note Date Seen: Nov 13, 2024 Has the PT tested + for MRSA If YES, has PT been informed?: Yes Medical Necessity Reason Pt with a Central, PICC or Fol: Yes The following are medically ne: Central Line Subjective Patient reports: No new complaints Review of Systems: CVS:Normal, RESPIRATORY:Normal, GI:Normal, :Abnormal Objective vital signs Vital Sign Date Time Temp Pulse Resp B/P (MAP) Pulse Ox O2 Delivery O2 Flow Rate FiO2 11/13/24 06:44 100.0 100.0 11/13/24 06:30 103 14 99 11/13/24 06:00 Nasal Cannula* 5 40 Total Intake and Output 11/12/24 11/12/24 11/13/24 15:00 23:00 07:00 Intake Total 1042.5 ml Balance 1042.5 ml medications Current Medications Medications Dose Ordered Sig/Kenji Route Start Time Stop Time Status Last Admin Dose Admin Nitroglycerin 0.4 mg Q5MINP PRN SL 11/12/24 16:00 Morphine Sulfate 2 mg Q30M PRN IV 11/12/24 16:00 Hydromorphone HCl 0.5 mg Q4HP PRN IV 11/12/24 16:00 11/13/24 03:55 0.5 MG Ondansetron HCl 4 mg Q4HP PRN IV 11/12/24 16:00 Piperacillin Sod/ Tazobactam Sod 100 ml @ 25 mls/hr Q8HR IV 11/13/24 06:00 11/13/24 07:10 25 MLS/HR Acetaminophen 650 mg Q4HP PRN PO 11/12/24 23:15 Norepinephrine Bitartrate 250 ml @ 3.75 mls/hr Q24H IV 11/13/24 03:15 11/13/24 04:53 3.75 MLS/HR Examination: GENERAL:Normal, LUNGS:Normal, CVS:Normal laboratory and microbiology Laboratory Tests 11/13/24 03:40 Test 11/13/24 03:40 Range/Units Serum Glucose 198 H 74-106 mg/dL Problem List/Assessment/Plan Problem List/Assessment/Plan 1) L UPJ stone 2) UTI 3) Gram negative [place]rey bacteremia 4) Septic shock 5) L hydronephrosis, moderate plan; transferred to ICU overnight, now on 5L o2 via NC and 4 mcg of levophed this AM, BCx + for gram negative rods, on IV zosyn, urology consult obtained and recommending IR placement of PNT for now and continued treatment of infection with outpt ESWL on discharge, continue IVF hydration, supportive care, IR consult placed for PNT, daily labs, will follow along Plan discussed with: Other (n) DARIUS SANTORO MD Nov 13, 2024 07:33
[2024-11-13] MEDS: fentaNYL CITRATE 100 MCG/2 ML VL ONE (08:59)
[2024-11-13] MEDS: MIDAZOLAM HCL 2MG/2ML 2ml VIAL (1mg/ml) ONE (09:00)
[2024-11-13] MEDS: LIDOCAINE 2%HCL (LOCAL ANESTH.) INJ 20ML MDV ONE (09:00)
--- NOTE | 2024-11-13 10:33 | DVH ---
XY PERCUTANEOUS NEPHROSTOMY HISTORY: LEFT NEPHRO TUBE PLACEMENT due to septic kidney stone needing vasopressor. PROCEDURE: Informed consent was obtained. The patient was placed on the fluoroscopic table in a prone position and IV sedation administered. The left flank was prepped with chlorhexidine which was allow ed to dry and draped in the usual sterile fashion. Time out was performed. and the soft tissues infil trated with 1% lidocaine local anesthetic. Utilizing ultrasound guidance, a 21 gauge Chiba needle was advanced from a posterolateral approach into an lower pole calyx, and a small amount of contrast was injected under fluoroscopy to confirm positioning. Over a mandril wire, exchange was made to a non-v ascular access set, through which was advanced an 0.035 wire. Following serial dilation, an 8.5 Frenc h multipurpose nephrostomy catheter was placed with tip pigtailed within the renal pelvis. Position w as confirmed with antegrade nephrostogram. The catheter was secured in place and connected to gravity drainage. A sterile dressing was applied. No immediate complication was identified. Air Kerma 12 mGy FLUOROSCOPY TIME: 1.5 minutes. CONTRAST USED: 10 mL. SEDATION: Dr. Roxane Rebolledo was personally responsible for the administration of moderate sedation during the procedure performed, including the use of an independent trained observer who had no other duties during the procedure. The drugs utilized were IV fentanyl and versed (see nursing log for details). The total time of supervision by the attending physician was approximately 30 minutes. FINDINGS: Dilated left renal collecting system involving the calyces/renal pelvis/ureter to the level of the proximal ureter from a partially obstructive stone. New 8.5 [place] nephrostomy tube via a posterior lower pole calyceal access, with loop coiled within the renal pelvis. IMPRESSION: Left hydronephrosis due to partially obstructive septic left kidney stone, status post placement of 8 .5 [place] left percutaneous nephrostomy catheter. PLAN: Routine catheter care.
[2024-11-13] MEDS ORDERED: DEXTROSE (50%) 50ML SYRG IV PRN (12:00)
[2024-11-13] MEDS: SODIUM CHLORIDE 0.9% 1,000 ML IV SCH (12:58)
[2024-11-13] MEDS: ACCU-CHEK COMFORT CURVE STRIP VI SCH (16:21)
[2024-11-13] MEDS: InsuLIN REG 1unit/0.01ml Soln (100units/ml) SC SCH (16:21)
[2024-11-14] VITALS (11 sets, daily range): BP systolic 126–173; BP diastolic 65–83; PULSE 74–96; RESP 14–20; TEMP 97.9–99; O2SAT 95–100
[2024-11-14 05:46] LABS: Basophils # (auto) 0.2 10 ^3/uL (0-0.2); Basophils % (auto) 1.4 % (0.0-2.0); Eosinophils # (auto) 0.1 10 ^3/uL (0-0.8); Eosinophils % (auto) 0.7 % (0.0-7.0); Hematocrit 32.4 % (36.0-46.0); Hemoglobin 11.1 g/dL (12.2-16.2); Lymphocytes # (auto) 0.9 10 ^3/uL (0.4-5.4); Mean Corpuscular Hemoglobin 31.3 pg (28.0-32.0); Mean Corpuscular Hgb Conc. 34.1 g/dL (32.0-36.0); Mean Corpuscular Volume 91.6 fL (80.0-100.0); Monocytes # (auto) 0.6 10 ^3/uL (0-1.3); Monocytes % (auto) 3.1 % (0.0-12.0); Neutrophils # (auto) 15.9 10 ^3/uL (1.6-8.6); Neutrophils % (auto) 89.8 % (37.0-80.0); Platelet Count (auto) 122 10^3/uL (140-450); Red Blood Cells 3.54 10^6/uL (4.0-5.20); Red Cell Distribution Width 14.1 % (11.8-14.3); White Blood Cell 17.7 10^3/uL (4.4-10.8)
[2024-11-14 05:56] LABS: Potassium 3.8 mmol/L (3.5-5.1); Sodium 140 mmol/L (136-145)
[2024-11-14 05:57] LABS: Anion Gap 9 (5-15); Carbon Dioxide 20 mmol/L (20-31)
[2024-11-14 06:02] LABS: BUN/Creatinine Ratio 19.4 (10.0-20.0); Blood Urea Nitrogen 12 mg/dL (9-23)
[2024-11-14 06:25] LABS: Chloride 111 mmol/L (98-107)
[2024-11-14 06:26] LABS: Calcium 8.3 mg/dL (8.7-10.4); Glucose 163 mg/dL (74-106)
[2024-11-14] MEDS: ONDANSETRON HCL 4 MG/2 ML VIAL IV PRN (09:28)
[2024-11-14] MEDS: metFORMIN HYDROCHLORIDE 500 MG TAB PO SCH (09:32)
--- NOTE | 2024-11-14 10:37 | DVH ---
XY CHEST XRAY 1 VIEW, HISTORY: Chest Pain, Shortness of Breath COMPARISON: None None TECHNICAL DATA: 1 view of the chest was obtained. FINDINGS: Lines and tubes: None Cardiomediastinal silhouette: normal Pulmonary vasculature: normal Lung expansion: normal Lung airspace: normal Lung interstitium: normal Pleura: normal Pneumothorax: no Bones: Unremarkable Other: no IMPRESSION: No acute intrathoracic abnormality.
--- NOTE | 2024-11-14 12:10 | DVHPN2 ---
Progress Note - Dictate Date Seen: Nov 14, 2024 Has the PT tested + for MRSA If YES, has PT been informed?: Yes Medical Necessity Reason Pt with a Central, PICC or Fol: Yes The following are medically ne: Central Line Subjective Patient complaining of shortness of breath this AM. Pain controlled. vital signs Vital Sign Date Time Temp Pulse Resp B/P (MAP) Pulse Ox O2 Delivery O2 Flow Rate FiO2 11/14/24 10:45 96 16 165/77 96 11/14/24 08:30 97.9 97.9 11/13/24 20:00 Nasal Cannula* 2 28 Total Intake and Output 11/13/24 11/13/24 11/14/24 15:00 23:00 07:00 Intake Total 378.75 ml 900 ml 400 ml Output Total 825 ml 600 ml Balance 378.75 ml 75 ml -200 ml medications Current Medications Medications Dose Ordered Sig/Kenji Route Start Time Stop Time Status Last Admin Dose Admin Nitroglycerin 0.4 mg Q5MINP PRN SL 11/12/24 16:00 Morphine Sulfate 2 mg Q30M PRN IV 11/12/24 16:00 Hydromorphone HCl 0.5 mg Q4HP PRN IV 11/12/24 16:00 11/14/24 01:57 0.5 MG Ondansetron HCl 4 mg Q4HP PRN IV 11/12/24 16:00 11/14/24 09:28 4 MG Piperacillin Sod/ Tazobactam Sod 100 ml @ 25 mls/hr Q8HR IV 11/13/24 06:00 11/14/24 05:56 25 MLS/HR Acetaminophen 650 mg Q4HP PRN PO 11/12/24 23:15 Norepinephrine Bitartrate 250 ml @ 3.75 mls/hr Q24H IV 11/13/24 03:15 11/13/24 04:53 3.75 MLS/HR Metformin HCl 500 mg DAILY PO 11/14/24 10:00 11/14/24 09:32 500 MG Diagnostic Test (Pha) 1 strip ACHS 11/13/24 17:00 11/14/24 11:31 1 STRIP Insulin Human Regular ACHS SC 11/13/24 17:00 11/14/24 11:52 2 UNITS Dextrose 50 ml UD PRN IV 11/13/24 12:00 Sodium Chloride 1,000 ml @ 100 mls/hr Q10H IV 11/13/24 12:00 11/13/24 21:20 100 MLS/HR Albuterol 2.5 mg Q6HR NEB 11/14/24 12:00 Ipratropium [place] 0.5 mg Q6HR NEB 11/14/24 12:00 laboratory and microbiology Laboratory Tests 11/14/24 05:10 Test 11/14/24 05:10 Range/Units Serum Glucose 163 H 74-106 mg/dL Assessment/Plan 1) L UPJ stone 2) UTI 3) Gram negative [place]rey bacteremia 4) Septic shock 5) L hydronephrosis, moderate -Patient's status post PNT -Continue Zosyn -Blood cultures pending susceptibilities -Plan to transition to oral antibiotics if no resistance noted on susceptibilities -DuoNebs ordered -Repeat chest x-ray does not show any acute bony abnormalities -Incentive spirometer ordered -Home oxygen ordered for 2 L -PT eval ordered -Outpatient plan for ESWL -daily CBC and BMP -Full Code Dietary Evaluation Review Comments: 1. Disagree with Cardiac modifier, would remove and increase CHO limit to 60 gm/meal 2. Maintain glycemic control <180 mg/dl; metformin and ss insulin per protocol 3. Appreciate daily weights to trend possible gain/losses 4. Will assess need for oral supplements on FU pending PO intakes Expected Outcomes/Goals: Document PO intakes, weight maintenance, glycemic control. Plan discussed with: Patient MAIKLuz ElenaYVON OLIVIA DO Nov 14, 2024 12:10
--- NOTE | 2024-11-14 17:02 | DVHPN2 ---
Progress Note - Dictate Date Seen: Nov 14, 2024 Has the PT tested + for MRSA If YES, has PT been informed?: Yes Medical Necessity Reason Pt with a Central, PICC or Fol: Yes The following are medically ne: Central Line Subjective breathing better, left flank pain, loaiza cear vital signs Vital Sign Date Time Temp Pulse Resp B/P (MAP) Pulse Ox O2 Delivery O2 Flow Rate FiO2 11/14/24 12:30 98.3 76 14 172/81 (111) 96 98.3 11/14/24 08:00 Nasal Cannula* 2 28 Total Intake and Output 11/13/24 11/13/24 11/14/24 15:00 23:00 07:00 Intake Total 378.75 ml 900 ml 400 ml Output Total 825 ml 600 ml Balance 378.75 ml 75 ml -200 ml medications Current Medications Medications Dose Ordered Sig/Kenji Route Start Time Stop Time Status Last Admin Dose Admin Nitroglycerin 0.4 mg Q5MINP PRN SL 11/12/24 16:00 Morphine Sulfate 2 mg Q30M PRN IV 11/12/24 16:00 Hydromorphone HCl 0.5 mg Q4HP PRN IV 11/12/24 16:00 11/14/24 01:57 0.5 MG Ondansetron HCl 4 mg Q4HP PRN IV 11/12/24 16:00 11/14/24 09:28 4 MG Piperacillin Sod/ Tazobactam Sod 100 ml @ 25 mls/hr Q8HR IV 11/13/24 06:00 11/14/24 13:10 25 MLS/HR Acetaminophen 650 mg Q4HP PRN PO 11/12/24 23:15 Norepinephrine Bitartrate 250 ml @ 3.75 mls/hr Q24H IV 11/13/24 03:15 11/13/24 04:53 3.75 MLS/HR Metformin HCl 500 mg DAILY PO 11/14/24 10:00 11/14/24 09:32 500 MG Diagnostic Test (Pha) 1 strip ACHS 11/13/24 17:00 11/14/24 16:14 1 STRIP Insulin Human Regular ACHS SC 11/13/24 17:00 11/14/24 11:52 2 UNITS Dextrose 50 ml UD PRN IV 11/13/24 12:00 Sodium Chloride 1,000 ml @ 100 mls/hr Q10H IV 11/13/24 12:00 11/13/24 21:20 100 MLS/HR Albuterol 2.5 mg Q6HR NEB 11/14/24 12:00 Ipratropium [place] 0.5 mg Q6HR NEB 11/14/24 12:00 Losartan Potassium 50 mg DAILY PO 11/15/24 10:00 laboratory and microbiology Laboratory Tests 11/14/24 05:10 Test 11/14/24 05:10 Range/Units Serum Glucose 163 H 74-106 mg/dL Assessment/Plan s/p PCN placement outpt stone management after resolution of infection Home health for dressing changes twice weekly Problems(with codes): (1) Hydronephrosis (2) Renal colic on left side (3) Bacteremia (4) Sepsis (5) Obstruction of ureteropelvic junction (UPJ) due to stone Dietary Evaluation Review Comments: 1. Disagree with Cardiac modifier, would remove and increase CHO limit to 60 gm/meal 2. Maintain glycemic control <180 mg/dl; metformin and ss insulin per protocol 3. Appreciate daily weights to trend possible gain/losses 4. Will assess need for oral supplements on FU pending PO intakes Expected Outcomes/Goals: Document PO intakes, weight maintenance, glycemic control. Plan discussed with: Patient, Other Total Time (mins): 25 MANUEL LICEA NP Nov 14, 2024 17:02
[2024-11-14] MEDS: LOSARTAN POTASSIUM 50 MG TAB PO ONE (17:18)
[2024-11-14] MEDS: ALBUTEROL SULF 2.5 MG/0.5ML(0.5%) NEB SOLN NEB SCH (19:16)
[2024-11-14] MEDS: IPRATROPIUM BROM 0.5 MG/2.5ML INH SOL NEB SCH (19:16)
[2024-11-15] VITALS (10 sets, daily range): BP systolic 137–164; BP diastolic 75–81; PULSE 67–78; RESP 16–19; TEMP 98–99; O2SAT 94–100
[2024-11-15 06:51] LABS: Potassium 3.6 mmol/L (3.5-5.1); Sodium 142 mmol/L (136-145)
[2024-11-15 06:52] LABS: Basophils # (auto) 0.1 10 ^3/uL (0-0.2); Basophils % (auto) 0.5 % (0.0-2.0); Carbon Dioxide 22 mmol/L (20-31); Eosinophils # (auto) 0.1 10 ^3/uL (0-0.8); Eosinophils % (auto) 0.9 % (0.0-7.0); Hemoglobin 10.5 g/dL (12.2-16.2); Lymphocytes # (auto) 1.8 10 ^3/uL (0.4-5.4); Lymphocytes % (auto) 11.1 % (10.0-50.0); Mean Corpuscular Hemoglobin 31.6 pg (28.0-32.0); Mean Corpuscular Volume 90.5 fL (80.0-100.0); Monocytes # (auto) 0.6 10 ^3/uL (0-1.3); Monocytes % (auto) 3.6 % (0.0-12.0); Neutrophils # (auto) 13.7 10 ^3/uL (1.6-8.6); Neutrophils % (auto) 83.9 % (37.0-80.0); Platelet Count (auto) 124 10^3/uL (140-450); Red Blood Cells 3.31 10^6/uL (4.0-5.20); Red Cell Distribution Width 13.8 % (11.8-14.3); White Blood Cell 16.3 10^3/uL (4.4-10.8)
[2024-11-15 06:55] LABS: Anion Gap 9 (5-15); Calcium 8.5 mg/dL (8.7-10.4); Chloride 111 mmol/L (98-107)
[2024-11-15 06:57] LABS: BUN/Creatinine Ratio 21.4 (10.0-20.0); Blood Urea Nitrogen 12 mg/dL (9-23)
[2024-11-15 07:02] LABS: Glucose 107 mg/dL (74-106)
[2024-11-15] MEDS ORDERED: AUG875T PO (08:52)
[2024-11-15] MEDS ORDERED: TRAM50TA2 PO (09:06)
[2024-11-15] MEDS ORDERED: NAP500T PO (09:08)
[2024-11-15] MEDS: KETOROLAC TROMETH 30 MG/ML 1ML VIAL IV ONE (09:11)
[2024-11-15] MEDS: LOSARTAN POTASSIUM 50 MG TAB PO SCH (09:25)
[2024-11-15] MEDS ORDERED: NALO4SPR2 (11:18)
--- NOTE | 2024-11-15 16:21 | DVHDS2 ---
Discharge Summary Date of Admission Nov 12, 2024 at 15:47 Date of Discharge: Nov 15, 2024 Labs/Diagnostic Data: Laboratory Results Test 11/15/24 10:55 11/15/24 04:57 11/12/24 19:14 11/12/24 11:53 POC Glucose 160 mg/dl (70-106) White Blood Count 16.3 10^3/uL (4.4-10.8) Red Blood Count 3.31 10^6/uL (4.0-5.20) Hemoglobin 10.5 g/dL (12.2-16.2) Hematocrit 30.0 % (36.0-46.0) Mean Corpuscular Volume 90.5 fL (80.0-100.0) Mean Corpuscular Hemoglobin 31.6 pg (28.0-32.0) Mean Corpuscular Hemoglobin Concent 35.0 g/dL (32.0-36.0) Red Cell Distribution Width 13.8 % (11.8-14.3) Platelet Count 124 10^3/uL (140-450) Mean Platelet Volume 10.3 fL (6.9-10.8) Neutrophils (%) (Auto) 83.9 % (37.0-80.0) Lymphocytes (%) (Auto) 11.1 % (10.0-50.0) Monocytes (%) (Auto) 3.6 % (0.0-12.0) Eosinophils (%) (Auto) 0.9 % (0.0-7.0) Basophils (%) (Auto) 0.5 % (0.0-2.0) Neutrophils # (Auto) 13.7 10 ^3/uL (1.6-8.6) Lymphocytes # (Auto) 1.8 10 ^3/uL (0.4-5.4) Monocytes # (Auto) 0.6 10 ^3/uL (0-1.3) Eosinophils # (Auto) 0.1 10 ^3/uL (0-0.8) Basophils # (Auto) 0.1 10 ^3/uL (0-0.2) Nucleated Red Blood Cells 0.0 % Sodium Level 142 mmol/L (136-145) Potassium Level 3.6 mmol/L (3.5-5.1) Chloride Level 111 mmol/L (98-107) Carbon Dioxide Level 22 mmol/L (20-31) Anion Gap 9 (5-15) Blood Urea Nitrogen 12 mg/dL (9-23) Creatinine 0.56 mg/dL (0.550-1.02) Glomerular Filtration Rate Calc 101 mL/min (>90) BUN/Creatinine Ratio 21.4 (10.0-20.0) Serum Glucose 107 mg/dL (74-106) Calcium Level 8.5 mg/dL (8.7-10.4) Prothrombin Time 11.1 sec (9.3-11.8) Prothrombin Time INR 1.05 (0.9-1.15) Troponin I High Sensitivity < 3 ng/L (</=34) Test 11/12/24 10:20 11/12/24 10:00 Lactic Acid Level 1.8 mmol/L (0.4-2.0) Urine Color Light-yellow (Yellow) Urine Clarity Clear (Clear) Urine pH 5.0 (5.0-9.0) Urine Specific [place] 1.014 (1.001-1.035) Urine Protein Negative (Negative) Urine Ketones Negative (Negative) Urine Blood 2+ /uL (Negative) Urine Nitrite 1+ (Negative) Urine Bilirubin Negative (Negative) Urine Urobilinogen Normal mg/dL (Negative) Urine Leukocyte Esterase 2+ /uL (Negative) Urine RBC 29 /hpf (0 - 4) Urine Microscopic WBC 13 /HPF (0-5) Urine Squamous Epithelial Cells Few /hpf (<5) Urine Bacteria Few /hpf (None Seen) Urine Mucus Few (None Seen) Urine Yeast (Budding) Occasional /hpf (None Urine Glucose Normal mg/dL (Normal) Other Laboratory Tests 11/15/24 04:57 Brief Hx & Hospital Course: Patient is a 64-year-old female who presented with left flank pain and was sent by her PCP office. CT imaging had showed a left obstructing 1 cm UPJ stone. Urology was consulted and recommended PCNT placement. Patient successfully underwent the procedure with IR. Patient was noted to be septic on admission and was initially treated with IV fluids. Patient was transferred to ICU for monitoring. Her blood pressure subsequently stabilized. Patient's blood culture and urine. Patient was treated with Zosyn during her hospitalization. She was transition to Augmentin for duration of 2 additional weeks on discharge. Patient was also discharged with tramadol with Narcan rescue for severe pain as needed. Urology recommended the patient undergo outpatient ESWL once infection resolves in about 4 weeks. Patient discharged in stable condition. [facility] case management to arrange follow-up appointments. Condition at Discharge: Good Final Diagnosis/Problems List Sepsis from UTI and nephrolithiasis Secondary Diagnosis: Hypertension Morbid Obesity Septic Shock Acute Respiratory Failure due to Atelectasis Discharge Disposition: Home with Health Services Discharge Instruct/Medications Diet: Consistent carbohydrate, Renal Diet comment: Renal Consistent Carbohydrate Activity: No Restrictions, As Tolerated Follow Up/Referral: Follow up with urology for PNT removal and lithotripsy. Medications: Augmentin x14 days Discharge Statement: "Patient was advised to return to the ER or call 911 if any headaches, dizziness, shortness of breath, chest pain, abdominal pain, bleeding, fevers, or worsening of medical condition. Patient was counseled about treatment plan, medications, possible side effects, patientverbalized understanding. All questions were answered to the best of my ability. This discharge took greater then 30 minutes in planning, reviewing documentation, counseling the patient, and discussing with other team members." ASSESSMENT ASSESSMENT Assessment Sepsis from UTI and nephrolithiasis YVON PRECIADO DO Nov 15, 2024 16:21
== END 2024-11-15 13:55 | disposition home health service (06) | DRG 871 ==
LOC: ER 09:33 → OVERFLOW 15:47 → ICU WEST 15:52 → TELE-WESTW 23:50 → ICU WEST 11-13 03:22 → EAST 11-13 20:46 → TELE-EAST 11-13 21:03
PROVIDERS: ADMIT Student in an Organized Health Care Education/Training Program; ATTEND Student in an Organized Health Care Education/Training Program
PROC: 0T9130Z Drainage of Left Kidney with Drainage Device, Percutaneous Approach (ICD-10-PCS; principal; 2024-11-13)
DX: A41.9 Sepsis, unspecified organism (principal); J96.00 Acute respiratory failure, unspecified whether with hypoxia or hypercapnia; R65.21 Severe sepsis with septic shock; J98.11 Atelectasis; E66.01 Morbid (severe) obesity due to excess calories; B96.89 Other specified bacterial agents as the cause of diseases classified elsewhere; I10 Essential (primary) hypertension; K74.60 Unspecified cirrhosis of liver; Z79.84 Long term (current) use of oral hypoglycemic drugs; Z79.899 Other long term (current) drug therapy; Z87.442 Personal history of urinary calculi
CPT/HCPCS: 36415; 71045; 74176; 74425; 76942; 80048; 81001; 82962; 83605; 84484; 85025; 85610; 87040; 87077; 87081; 87086; 87088; 87186; 94640; 99291; G0378; J0131; J1815; J1885; J2250; J2405; J2543

== ENCOUNTER 2024-12-05 10:21 | Inpatient (IN) | payer OTHER ==
[2024-12-05] VITALS (7 sets, daily range): BP systolic 122–129; BP diastolic 61–62; PULSE 104–115; RESP 16–20; TEMP 99.2–99.5; O2SAT 93–96
[~2024-12-05] VITALS: Ht 152.4 cm; Wt 83.9 kg
[~2024-12-05 10:21] MED LIST changes: +ALEN70TA74 PO; +ATOR20TA PO; +AUG875T PO; +GLUC500T48 PO; +MELO7.5T7 PO; +NALO4SPR2; +NAP500T PO; +TRAM50TA2 PO
--- NOTE | 2024-12-05 10:43 | ED.PDOC ---
General HPI Comments HPI: Poor Historian. 64-year-old female presents to emergency department for left flank pain and nonspecific generalized abdominal pain since last Monday. Patient also has some associated nonbilious nonbloody vomiting that started yesterday. Denies any fever. Patient was discharged from the hospital on November 15 after nephrostomy tube was placed in the left side for kidney stone. Patient states that the bag is draining urine. She is voiding some urine as well herself. Patient is not currently on any antibiotics. Patient receives wound [facility] nurse who changes the dressing on the nephrostomy tube. 11/15/24-Discharge Diagnosis Sepsis from UTI and nephrolithiasis Secondary Diagnosis: Hypertension Morbid Obesity Septic Shock Acute Respiratory Failure due to Atelectasis Past Medical History:Kidney Stones Past Surgical History: No Sx Hx REVIEW OF SYSTEMS: CONSTITUTIONAL: Denies acute: fever, diaphoresis, chills, generalized weakness. HEAD: Denies acute: headache, photophobia Eyes: Denies acute: Double vision, vision loss, eye pain, eye discharge. EARS: Denies acute: tinnitus, hearing loss, ear discharge, ear pain, THROAT: Denies acute: sore throat, swelling, difficulty swallowing , pain with swallowing, change in voice. NECK: Denies acute: neck pain, neck swelling, stiff neck. HEART: Denies acute : chest pain, palpitations, LUNGS: Denies acute: SOB, wheezing, cough, hemoptysis ABDOMEN: Denies acute: abdominal pain, Nausea, Vomiting, diarrhea, melena , hematemesis, hematochezia SKIN: Denies acute: rash, redness, lesions, itchiness. EXTREMITIES: Denies acute: calf pain, numbness, tingling, weakness, denies pain in extremity. Denies acute: Low back pain. Neuro: Denies acute: focal neurological deficit, motor or sensory focal neurological deficit, tremors, seizure like activity, confusion, dizziness, change in mental status, loss of bowel or bladder function, cauda equina like symptoms. : Denies acute: dysuria, hematuria, flank pain, increase in urinary frequency. PSYCH: Denies acute: hallucination, suicidal ideation, homicidal ideation. FEMALE: Denies acute: abnormal vaginal bleeding, foul odor, unusual discharge. PHYSICAL EXAM: General: -----[id number]---acute distress, awake and alert. Head: normocephalic, atraumatic. Neck: supple, trachea is midline, no swelling. Throat: Normal phonation. Eyes:, no erythema, no purulent discharge, no proptosis, no icterus. Heart: regular rate, regular rhythm, no significant murmur appreciated. Lungs: no apparent respiratory distress, Able to speak in full sentences. No wheezing, no rhonchi, no crackles. No stridors Clear to auscultation bilaterally. Abdomen: non tender to palpation, non distended, soft, no guarding, no rebound, + bowel sounds. Neuro: Awake, Alert, oriented to name, self, situation, follows commands GCS=15. Speech is normal. Skin: no petechia, no purpura, no cyanosis, non-pale, not jaundice. Lower extremities: --no - Pitting edema no deformity, no focal swelling, no calf TTP. Makes eye contact. moves all four extremities. Face: no apparent facial droop. No CVA tenderness to percussion bilaterally. Ambulating in the ED independently. Ears: Normal appearing TM b/l, Stroke: finger to nose cerebellar testing is intact. No pronator drift. Symmetrical forensic locksmith muscle strength b/l PERRLA, EOM-I CN 2-12 are grossly intact, Pedal pulses are palpable. No nystagmus. No nuchal rigidity, Kernig's sign, Brudzinski's sign, no meningeal signs. ED COURSE: Time Seen by MD: 10:38 Reviewed notes: Nurses Notes, Allergies Allergies: Coded Allergies: NO KNOWN ALLERGIES (Unverified , 05/15/22) Home Meds Active Scripts Sulfamethoxazole W/Trimethopri (Bactrim Ds Tablet) 1 Tab Tb, 1 TAB PO BID, #14 TAB Prov:DARIUS SANTORO MD 12/05/24 Naloxone HCl (Narcan) 4 Mg/0.1 Ml Spr, 4 MG NA ONCE for 1 Day, #1 SPRAY 0 Refills Prov:YVON PRECIADO DO 11/15/24 Naproxen (NAPROSYN TABLET) 500 Mg Tb, 1 TAB PO BID for 30 Days, #60 TAB 1 Refill Take for moderate kidney pain. Prov:YVON PRECIADO DO 11/15/24 Tramadol Hcl (Tramadol Hcl) 50 Mg Tab, 50 MG PO Q6HP PRN for 30 Days, #30 TAB 0 Refills Prov:YVON PRECIADO DO 11/15/24 Amoxicillin & Pot Clavulanate (AUGMENTIN TABLET) 875 Mg Tb, 875 MG PO BID for 14 Days, #28 TAB 0 Refills Prov:YVON PRECIADO DO 11/15/24 Reported Medications Gabapentin (Gabapentin) 300 Mg Cap, 1 CAP PO TID for 30 Days, #90 11/13/24 Metformin Hydrochloride (Metformin Hcl) 1,000 Mg Tab, 1 TAB PO BID for 90 Days, #180 11/13/24 Glucosamine Hydrochloride (GLUCOSAMINE) 500 Mg Tab, 500 MG PO, TAB 11/12/24 Meloxicam (Meloxicam) 7.5 Mg Tab, 1 TAB PO DAILY, #30 TAB 2 Refills 11/12/24 Alendronate Sodium (Alendronate Sodium) 70 Mg Tab, 1 TAB PO QWEEKLY, #4 TAB 3 Refills 11/12/24 Atorvastatin Calcium (Lipitor) 20 Mg Tab, 1 TAB PO DAILY, #90 TAB 1 Refill 11/12/24 Semaglutide (Ozempic) 2 Mg/3 Ml Inj, 0.5 MG SC QWEEKLY for 3 Days, #28 11/12/24 Information Source: Patient Past Medical History PAST MEDICAL HISTORY: Kidney Stones Surgical History: Denies all surgeries SAUSAGE GRINDER History: No Pertinent SAUSAGE GRINDER History Family History Family History: Reviewed,noncontributory to illness, No family hx of Cancer, No family hx of DM, No family hx of Heart sony, No family hx of HTN, No family hx ofKidney sony, No family hx of Liver sony, No family hx of Lung sony, No family hx of Stroke Social History Smoker: Non-Smoker Alcohol: Denies ETOH Use Drugs: Denies Drug Use Lives In: Home Was a procedure done? Was a procedure done?: No Differential Diagnosis Kidney stone (Female): Other (Flank Pain;DDX include Nephrolethiasis, obstructive uropathy, kidney cancer, renal infarct, intraabdominal neoplasm, lower lobe pneumonia, retroperitoneal hemorrhage, pancreatitis, aneurysm, dissection, musculoskeletal, rib contusion/trauma, hematoma, PYLONEPHRITIS, muscle strain, spinal disease. IN A FEMALE) X-Ray, Labs, Meds, VS Vital Signs Date Time Temp Pulse Resp B/P (MAP) Pulse Ox O2 Delivery O2 Flow Rate FiO2 12/05/24 15:09 123 12/05/24 11:12 98.3 85 16 130/62 (84) 94 98.3 12/05/24 11:12 85 16 94 Room Air 12/05/24 10:55 84 12/05/24 10:41 98.4 87 20 146/62 (90) 100 98.4 Lab Test 12/05/24 15:19 12/05/24 12:14 12/05/24 12:04 12/05/24 11:03 Range/Units Prothrombin Time 10.5 9.3-11.8 sec Prothrombin Time INR 0.99 0.9-1.15 Troponin I High Sensitivity < 3 L < 3 L </=34 ng/L Urine Color Light-yellow Yellow Urine Clarity Clear Clear Urine pH 6.0 5.0-9.0 Urine Specific Arnold 1.011 1.001-1.035 Urine Protein Negative Negative Urine Ketones Negative Negative Urine Blood Negative Negative /uL Urine Nitrite Negative Negative Urine Bilirubin Negative Negative Urine Urobilinogen Normal Negative mg/dL Urine Leukocyte Esterase 1+ Negative /uL Urine RBC 1 0 - 4 /hpf Urine Microscopic WBC 12 H 0-5 /HPF Urine Squamous Epithelial Cells Few <5 /hpf Urine Bacteria Few H None Seen /hpf Urine Glucose Normal Normal mg/dL Lactic Acid Level 3.0 *H 2.6 *H 0.4-2.0 mmol/L White Blood Count 11.3 H 4.4-10.8 10^3/uL Red Blood Count 4.83 4.0-5.20 10^6/uL Hemoglobin 14.2 12.2-16.2 g/dL Hematocrit 43.4 36.0-46.0 % Mean Corpuscular Volume 89.8 80.0-100.0 fL Mean Corpuscular Hemoglobin 29.5 28.0-32.0 pg Mean Corpuscular Hemoglobin Concent 32.8 32.0-36.0 g/dL Red Cell Distribution Width 13.9 11.8-14.3 % Platelet Count 269 140-450 10^3/uL Mean Platelet Volume 10.0 6.9-10.8 fL Neutrophils (%) (Auto) 64.2 37.0-80.0 % Lymphocytes (%) (Auto) 25.3 10.0-50.0 % Monocytes (%) (Auto) 5.9 0.0-12.0 % Eosinophils (%) (Auto) 3.5 0.0-7.0 % Basophils (%) (Auto) 1.1 0.0-2.0 % Neutrophils # (Auto) 7.3 1.6-8.6 10 ^3/uL Lymphocytes # (Auto) 2.9 0.4-5.4 10 ^3/uL Monocytes # (Auto) 0.7 0-1.3 10 ^3/uL Eosinophils # (Auto) 0.4 0-0.8 10 ^3/uL Basophils # (Auto) 0.1 0-0.2 10 ^3/uL Nucleated Red Blood Cells 0.1 % Sodium Level 141 136-145 mmol/L Potassium Level 4.2 3.5-5.1 mmol/L Chloride Level 106 98-107 mmol/L Carbon Dioxide Level 24 20-31 mmol/L Anion Gap 11 5-15 Blood Urea Nitrogen 16 9-23 mg/dL Creatinine 0.61 0.550-1.02 mg/dL Glomerular Filtration Rate Calc 99 >90 mL/min BUN/Creatinine Ratio 26.2 H 10.0-20.0 Serum Glucose 133 H 74-106 mg/dL Calcium Level 10.0 8.7-10.4 mg/dL Total Bilirubin 0.8 0.2-1.0 mg/dL Aspartate Amino Transferase (AST) 23 13-40 U/L Alanine Aminotransferase (ALT) 34 7-40 U/L Alkaline Phosphatase 85 46-116 U/L Total Protein 7.5 5.7-8.2 g/dL Albumin 4.8 3.2-4.8 g/dL Current Medications Medications (Trade) Dose Ordered Sig/Kenji Route Start Time Stop Time Status Last Admin Sodium Chloride 1,000 ml @ 1,000 mls/hr Q1H ONCE IV 12/05/24 10:45 12/05/24 11:44 DC 12/05/24 11:08 Ceftriaxone Sodium 50 ml @ 100 mls/hr ONCE ONCE IV 12/05/24 10:45 12/05/24 11:14 DC 12/05/24 11:14 Piperacillin Sod/ Tazobactam Sod 100 ml @ 100 mls/hr ONCE ONCE IV 12/05/24 13:30 12/05/24 14:29 DC 12/05/24 13:59 Nitroglycerin (Ntrostat Sublingual) 0.4 mg ONCE ONCE SL 12/05/24 15:15 12/05/24 15:16 DC 12/05/24 20:16 Aspirin (Ecotrin Enteric Coated Tablet) 325 mg ONCE ONCE PO 12/05/24 15:15 12/05/24 15:16 DC 12/05/24 20:10 Sodium Chloride 1,000 ml @ 1,000 mls/hr Q1H ONCE IV 12/05/24 15:15 12/05/24 16:14 DC 12/05/24 15:51 PROCEDURE(s): ABPL - CT AB PEL WO CON-NO ORAL OR IV REASON: abd pain, L flank pain ORDER NUMBER(s): [id number], ACCESSION NUMBER(s): [id number] CT ABDOMEN AND PELVIS WITHOUT CONTRAST CLINICAL HISTORY: abd pain, L flank pain TECHNIQUE: Multiple contiguous axial images of the abdomen and pelvis without intravenous contrast. The images were reformatted degenerate coronal and sagittal reconstructions. All CT scans at this medical facility are performed using dose modulation techniques as appropriate to a performed exam including the following:Automated exposure control was utilized; adjustment of the MA and/or KV according to patient size; and use of iterative reconstruction technique. Radiation Dose Information: CT Dose: CTDI volume is 19 mGy. Dose-length product is 955 mGy*cm Comparison: CT CT AB PEL WO CON-NO ORAL OR IV on DOS: 11/12/24 FINDINGS: Evaluation of the abdomen and pelvis is limited without intravenous contrast. There is a stable 1 cm calculus at the left ureteropelvic junction. There has been interval placement of left nephrostomy catheter with the distal loop in the renal pelvis. There is no significant left hydronephrosis. There is no evidence of right renal nephrolithiasis or hydronephrosis. Is a stable left renal cysts. The liver, gallbladder, pancreas, adrenal glands, and spleen appear within normal limits. There is no gross evidence of abdominal lymphadenopathy. There is no free fluid or free air. The stomach grossly appears unremarkable. The small and large bowel loops demonstrate normal caliber and distribution. There are diverticula in the colon without evidence of acute diverticulitis. The abdominal aorta and IVC appear within normal limits. The bladder appears unremarkable for the degree of distention. The uterus is surgically absent.. There is no gross evidence of a pelvic mass. There is no free fluid collection. Lung bases are clear. There is no acute osseous abnormality. IMPRESSION: 1. There is a stable 1 mm calculus at the left ureteropelvic junction. 2. Interval placement of left nephrostomy catheter with distal loop in the renal pelvis. There is no significant left hydronephrosis. HS:Y Time of 1ST Reevaluation: 13:03 (The case was discussed with the admitting team (HPI, physical exam, labs and diagnostic tests that were available at the time of disposition, ED course, treatment plan) on the phone. They agreed to come to the ED and evaluated the patient and make appropriate disposition. I recommended admitting the patient to the hospitalist given her recent complicated hospitalization course with sepsis in the ICU. Dr. Yung. ) Reevaluation 1ST: Unchanged Time of 2ND Reevaluation: 15:14 (At this time I was notified that the patient was developing some chest pain and chills. Additional troponins were ordered and EKG was obtained. Patient was tachycardic. I started the sepsis protocol. ) Patient Education/Counseling: Diagnosis, Treatment Family Education/Counseling: Other Comments Patient presented with the above HPI.---flank pain abdominal pain urinary symptoms---workup was initiated. patient was found with the above mentioned diagnosis. the following medications were ordered: please refer to order lists of meds and tests obtained by myself Dr. East. Patient ED course and VS have been stabilized. Patient has been reassessed in the ED and remained in a stable condition. Pertinent incidental findings were discussed with the patient and/or family. Patient/family voices understanding and is agreeable with plan. Patient has been observed in the ED adequate length of time to insure improvement/stability. Escalation of care considered: Consideration of escalation to observation or admission Sepsis protocol was initiated with with the his fluid resuscitation. Patient was ADMITTED to the medicine team for further evaluation and treatment of their presentation. All the reports of any imaging studies that were ordered by myself were reviewed by myself. Departure 1 Departure Time of Disposition: 12:43 Impression: Primary Impression: Flank pain Additional Impressions: UTI (urinary tract infection) Sepsis Tachycardia Chest pain Disposition: ADMITTED INPATIENT Admit to: Tele Condition: Guarded e-Prescriptions Sulfamethoxazole W/Trimethopri (Bactrim Ds Tablet) 1 Tab Tb 1 TAB PO BID, #14 TAB Prov: DARIUS SANTORO MD 12/05/24 Discharged With: Self Critical Care Note Critical Care Time?: Yes (55 min-critical care time only) I personally scribed for BALA EAST DO ([email or web address]) on 12/05/24 at 11:11. Electronically submitted by Jesse Almaraz [email or web address]). I personally scribed for BALA EAST DO ([email or web address]) on 12/05/24 at 14:58. Electronically submitted by Jesse Almaraz ([email or web address]). BALA EAST DO Dec 05, 2024 10:43
[2024-12-05] MEDS: SODIUM CHLORIDE 0.9% 1,000 ML IV ONE ×4 (11:08→20:39)
[2024-12-05] MEDS: cefTRIAXone 1GM/50ML D5W 50 ML IV ONE (11:14)
[2024-12-05 11:28] LABS: Basophils # (auto) 0.1 10 ^3/uL (0-0.2); Basophils % (auto) 1.1 % (0.0-2.0); Eosinophils # (auto) 0.4 10 ^3/uL (0-0.8); Eosinophils % (auto) 3.5 % (0.0-7.0); Hematocrit 43.4 % (36.0-46.0); Hemoglobin 14.2 g/dL (12.2-16.2); Lymphocytes # (auto) 2.9 10 ^3/uL (0.4-5.4); Lymphocytes % (auto) 25.3 % (10.0-50.0); Mean Corpuscular Hemoglobin 29.5 pg (28.0-32.0); Mean Corpuscular Hgb Conc. 32.8 g/dL (32.0-36.0); Mean Corpuscular Volume 89.8 fL (80.0-100.0); Monocytes # (auto) 0.7 10 ^3/uL (0-1.3); Monocytes % (auto) 5.9 % (0.0-12.0); Neutrophils # (auto) 7.3 10 ^3/uL (1.6-8.6); Neutrophils % (auto) 64.2 % (37.0-80.0); Nucleated Red Blood Cells % 0.1 %; Platelet Count (auto) 269 10^3/uL (140-450); Red Blood Cells 4.83 10^6/uL (4.0-5.20); Red Cell Distribution Width 13.9 % (11.8-14.3); White Blood Cell 11.3 10^3/uL (4.4-10.8)
[2024-12-05 11:34] LABS: Alanine Aminotransferase 34 U/L (7-40); Albumin 4.8 g/dL (3.2-4.8); Alkaline Phosphatase 85 U/L (46-116); Anion Gap 11 (5-15); Aspartate Aminotransferase 23 U/L (13-40); BUN/Creatinine Ratio 26.2 (10.0-20.0); Blood Urea Nitrogen 16 mg/dL (9-23); Carbon Dioxide 24 mmol/L (20-31); Chloride 106 mmol/L (98-107); Potassium 4.2 mmol/L (3.5-5.1); Sodium 141 mmol/L (136-145); Total Protein 7.5 g/dL (5.7-8.2)
[2024-12-05 11:35] LABS: Bilirubin, Total 0.8 mg/dL (0.2-1.0); Glucose 133 mg/dL (74-106)
[2024-12-05 11:40] LABS: Lactic Acid w/Reflex 2.6 mmol/L (0.4-2.0)
--- NOTE | 2024-12-05 11:50 | DVH ---
CT ABDOMEN AND PELVIS WITHOUT CONTRAST CLINICAL HISTORY: abd pain, L flank pain TECHNIQUE: Multiple contiguous axial images of the abdomen and pelvis without intravenous contrast. T he images were reformatted degenerate coronal and sagittal reconstructions. All CT scans at this medical facility are performed using dose modulation techniques as appropriate t o a performed exam including the following:Automated exposure control was utilized; adjustment of the MA and/or KV according to patient size; and use of iterative reconstruction technique. Radiation Dose Information: CT Dose: CTDI volume is 19 mGy. Dose-length product is 955 mGy*cm Comparison: CT CT AB PEL WO CON-NO ORAL OR IV on DOS: 11/12/24 FINDINGS: Evaluation of the abdomen and pelvis is limited without intravenous contrast. There is a stable 1 cm calculus at the left ureteropelvic junction. There has been interval placement of left nephrostomy catheter with the distal loop in the renal pelvis. There is no significant left hydronephrosis. There is no evidence of right renal nephrolithiasis or hydronephrosis. Is a stable le ft renal cysts. The liver, gallbladder, pancreas, adrenal glands, and spleen appear within normal limits. There is no gross evidence of abdominal lymphadenopathy. There is no free fluid or free air. The stomach grossly appears unremarkable. The small and large bowel loops demonstrate normal caliber and distribution. There are diverticula in the colon without evidence of acute diverticulitis. The abdominal aorta and IVC appear within normal limits. The bladder appears unremarkable for the degree of distention. The uterus is surgically absent.. The re is no gross evidence of a pelvic mass. There is no free fluid collection. Lung bases are clear. There is no acute osseous abnormality. IMPRESSION: 1. There is a stable 1 mm calculus at the left ureteropelvic junction. 2. Interval placement of left nephrostomy catheter with distal loop in the renal pelvis. There is no significant left hydronephrosis. HS:Y
[2024-12-05 12:38] LABS: Urine Bacteria FEW /hpf (None Seen); Urine Blood Negative /uL (Negative); Urine Clarity Clear (Clear); Urine Color Light-Yellow (Yellow); Urine Protein, UAD Negative (Negative); Urine Specific Gravity 1.011 (1.001-1.035); Urine Squamous Epithelial Cell FEW /hpf (<5); Urine Urobilinogen Normal (Negative); Urine WBC 12 /HPF (0-5)
[2024-12-05] MEDS ORDERED: BACDST PO (13:10)
[2024-12-05] MEDS: PIPERACILLIN-TAZO 4.5GM 100 ML IV ONE (13:59)
[2024-12-05] MEDS: ONDANSETRON HCL 4 MG/2 ML VIAL IV ONE (14:21)
[2024-12-05] MEDS: HYDROcodone-ACET 5/325MG TAB PO ONE (14:22)
--- NOTE | 2024-12-05 15:11 | ECG ---
[facility] Test Date: 2024-12-05 Test Time: 15:09:41 Pat Name: IVONNE MARTINEZ Department: ED Room: 0240T Gender: F Building Cleaner: lesa : 1960 Requested By: BALA EAST Order Number: [id number] Reading MD: Alex Brar Measurements Intervals Timbo Rate: 123 P: 72 NE: 138 QRS: -78 QRSD: 121 T: 30 QT: 334 QTc: 478 Interpretive Statements Sinus tachycardia Nonspecific IVCD with LAD Inferior infarct, old Artifact in lead(s) I,II,III,aVR,aVL,aVF Electronically Signed On 12-08-2024 20:23:06 PDT by Alex Brar Please click the below link to view image of tracing.
[2024-12-05] MEDS ORDERED: PIPERACILLIN-TAZOB 3.375GM 100 ML IV ONE (15:15)
[2024-12-05] MEDS ORDERED: MORPHINE SULFATE INJ 2 MG/ml SYRG IV PRN (15:30)
[2024-12-05] MEDS ORDERED: NITROGLYCERIN 0.4 MG SL TAB SL PRN (15:30)
[2024-12-05 16:22] LABS: INR 0.99 (0.9-1.15); Prothrombin Time 10.5 sec (9.3-11.8)
--- NOTE | 2024-12-05 16:41 | DVHINCON2 ---
Date of service: Dec 05, 2024 Referring Physician Juice Reason for Consultation 1 cm left UPJ stone Left PNT Urosepsis History of Present Illness 64 yo female with PMH of kidney stones s/p left PNT placement on 11/13/24. Patient was bacteremic with E. coli and was treated with IV antibiotics. She has been seeing Dr.James Friedman as outpatient regarding her urolithiasis. She is now readmitted for c/o of left flank pain. The left PNT is in good position per CT Scan. Past Medical History UTI Sepsis Kidney stones Past Surgical History Left PNT Family History: FH: hepatic cirrhosis G8 FATHER Allergies: Coded Allergies: NO KNOWN ALLERGIES (Unverified , 05/15/22) Home Meds Active Scripts Sulfamethoxazole W/Trimethopri (Bactrim Ds Tablet) 1 Tab Tb, 1 TAB PO BID, #14 TAB Prov:DARIUS SANTORO MD 12/05/24 Naloxone HCl (Narcan) 4 Mg/0.1 Ml Spr, 4 MG NA ONCE for 1 Day, #1 SPRAY 0 Refills Prov:YVON PRECIADO DO 11/15/24 Naproxen (NAPROSYN TABLET) 500 Mg Tb, 1 TAB PO BID for 30 Days, #60 TAB 1 Refill Take for moderate kidney pain. Prov:YVON PRECIADO DO 11/15/24 Tramadol Hcl (Tramadol Hcl) 50 Mg Tab, 50 MG PO Q6HP PRN for 30 Days, #30 TAB 0 Refills Prov:YVON PRECIADO DO 11/15/24 Amoxicillin & Pot Clavulanate (AUGMENTIN TABLET) 875 Mg Tb, 875 MG PO BID for 14 Days, #28 TAB 0 Refills Prov:YVON PRECIADO DO 11/15/24 Reported Medications Gabapentin (Gabapentin) 300 Mg Cap, 1 CAP PO TID for 30 Days, #90 11/13/24 Metformin Hydrochloride (Metformin Hcl) 1,000 Mg Tab, 1 TAB PO BID for 90 Days, #180 11/13/24 Glucosamine Hydrochloride (GLUCOSAMINE) 500 Mg Tab, 500 MG PO, TAB 11/12/24 Meloxicam (Meloxicam) 7.5 Mg Tab, 1 TAB PO DAILY, #30 TAB 2 Refills 11/12/24 Alendronate Sodium (Alendronate Sodium) 70 Mg Tab, 1 TAB PO QWEEKLY, #4 TAB 3 Refills 11/12/24 Atorvastatin Calcium (Lipitor) 20 Mg Tab, 1 TAB PO DAILY, #90 TAB 1 Refill 11/12/24 Semaglutide (Ozempic) 2 Mg/3 Ml Inj, 0.5 MG SC QWEEKLY for 3 Days, #28 11/12/24 Current Medications Current Medications Medications (Trade) Dose Ordered Sig/Kenji Route PRN Reason Start Time Stop Time Status Last Admin Nitroglycerin (Ntrostat Sublingual) 0.4 mg Q5MINP PRN SL FOR CHEST PAIN 12/05/24 15:30 Morphine Sulfate 2 mg Q30M PRN IV FOR CHEST PAIN 12/05/24 15:30 Piperacillin Sod/ Tazobactam Sod 100 ml @ 25 mls/hr Q8HR IV 12/05/24 22:00 Review of Systems Fever, chills Vital Signs Vital Signs Date Time Temp Pulse Resp B/P (MAP) Pulse Ox O2 Delivery O2 Flow Rate FiO2 12/05/24 15:09 123 12/05/24 11:12 98.3 16 130/62 (84) 94 98.3 12/05/24 11:12 Room Air Physical Exam Left PNT draining well. Labs/Diagnostic Data Labs Test 12/05/24 15:19 12/05/24 12:14 12/05/24 12:04 12/05/24 11:03 Range/Units Prothrombin Time 10.5 9.3-11.8 sec Prothrombin Time INR 0.99 0.9-1.15 Troponin I High Sensitivity < 3 L </=34 ng/L Urine Color Light-yellow Yellow Urine Clarity Clear Clear Urine pH 6.0 5.0-9.0 Urine Specific [place] 1.011 1.001-1.035 Urine Protein Negative Negative Urine Ketones Negative Negative Urine Blood Negative Negative /uL Urine Nitrite Negative Negative Urine Bilirubin Negative Negative Urine Urobilinogen Normal Negative mg/dL Urine Leukocyte Esterase 1+ Negative /uL Urine RBC 1 0 - 4 /hpf Urine Microscopic WBC 12 H 0-5 /HPF Urine Squamous Epithelial Cells Few <5 /hpf Urine Bacteria Few H None Seen /hpf Urine Glucose Normal Normal mg/dL Lactic Acid Level 3.0 *H 0.4-2.0 mmol/L White Blood Count 11.3 H 4.4-10.8 10^3/uL Red Blood Count 4.83 4.0-5.20 10^6/uL Hemoglobin 14.2 12.2-16.2 g/dL Hematocrit 43.4 36.0-46.0 % Mean Corpuscular Volume 89.8 80.0-100.0 fL Mean Corpuscular Hemoglobin 29.5 28.0-32.0 pg Mean Corpuscular Hemoglobin Concent 32.8 32.0-36.0 g/dL Red Cell Distribution Width 13.9 11.8-14.3 % Platelet Count 269 140-450 10^3/uL Mean Platelet Volume 10.0 6.9-10.8 fL Neutrophils (%) (Auto) 64.2 37.0-80.0 % Lymphocytes (%) (Auto) 25.3 10.0-50.0 % Monocytes (%) (Auto) 5.9 0.0-12.0 % Eosinophils (%) (Auto) 3.5 0.0-7.0 % Basophils (%) (Auto) 1.1 0.0-2.0 % Neutrophils # (Auto) 7.3 1.6-8.6 10 ^3/uL Lymphocytes # (Auto) 2.9 0.4-5.4 10 ^3/uL Monocytes # (Auto) 0.7 0-1.3 10 ^3/uL Eosinophils # (Auto) 0.4 0-0.8 10 ^3/uL Basophils # (Auto) 0.1 0-0.2 10 ^3/uL Nucleated Red Blood Cells 0.1 % Sodium Level 141 136-145 mmol/L Potassium Level 4.2 3.5-5.1 mmol/L Chloride Level 106 98-107 mmol/L Carbon Dioxide Level 24 20-31 mmol/L Anion Gap 11 5-15 Blood Urea Nitrogen 16 9-23 mg/dL Creatinine 0.61 0.550-1.02 mg/dL Glomerular Filtration Rate Calc 99 >90 mL/min BUN/Creatinine Ratio 26.2 H 10.0-20.0 Serum Glucose 133 H 74-106 mg/dL Calcium Level 10.0 8.7-10.4 mg/dL Total Bilirubin 0.8 0.2-1.0 mg/dL Aspartate Amino Transferase (AST) 23 13-40 U/L Alanine Aminotransferase (ALT) 34 7-40 U/L Alkaline Phosphatase 85 46-116 U/L Total Protein 7.5 5.7-8.2 g/dL Albumin 4.8 3.2-4.8 g/dL Assessment Left proximal ureteral stone, 1 cm Left PNT insitu UTI/Bacteremia Plan/Recommendation Awaiting urine/blood cultures IV Abx Possible inpatient lithotripsy next Monday12/10/24 if stable Plan discussed with: Patient, Other SHIVANI MARS MD Dec 05, 2024 16:41
[2024-12-05] MEDS: ASPirin-EC 325mg tab PO ONE (20:10)
[2024-12-05] MEDS: NITROGLYCERIN 0.4 MG SL TAB SL ONE (20:16)
[2024-12-05] MEDS: PIPERACILLIN-TAZOB 3.375GM 100 ML IV SCH (23:07)
[2024-12-06] VITALS (8 sets, daily range): BP systolic 128–151; BP diastolic 56–80; PULSE 79–91; RESP 16–19; TEMP 97.4–98; O2SAT 95–98
[2024-12-06 06:35] LABS: Basophils # (auto) 0 10 ^3/uL (0-0.2); Basophils % (auto) 0.6 % (0.0-2.0); Eosinophils # (auto) 0.4 10 ^3/uL (0-0.8); Eosinophils % (auto) 6.3 % (0.0-7.0); Hematocrit 36.9 % (36.0-46.0); Hemoglobin 12.5 g/dL (12.2-16.2); Lymphocytes # (auto) 1.6 10 ^3/uL (0.4-5.4); Lymphocytes % (auto) 23.9 % (10.0-50.0); Mean Corpuscular Hemoglobin 30.4 pg (28.0-32.0); Mean Corpuscular Hgb Conc. 33.8 g/dL (32.0-36.0); Monocytes # (auto) 0.3 10 ^3/uL (0-1.3); Monocytes % (auto) 4.3 % (0.0-12.0); Neutrophils # (auto) 4.3 10 ^3/uL (1.6-8.6); Neutrophils % (auto) 64.9 % (37.0-80.0); Platelet Count (auto) 193 10^3/uL (140-450); White Blood Cell 6.6 10^3/uL (4.4-10.8)
[2024-12-06 06:47] LABS: Sodium 144 mmol/L (136-145)
[2024-12-06 06:48] LABS: Anion Gap 9 (5-15); Calcium 8.8 mg/dL (8.7-10.4); Carbon Dioxide 24 mmol/L (20-31)
[2024-12-06 06:53] LABS: Blood Urea Nitrogen 12 mg/dL (9-23)
--- NOTE | 2024-12-06 06:54 | DVHHP2 ---
Admitting Diagnosis: flank pain History of Present Illness HPI 64 F with PNT for 1cm UPJ stone present to ER for flank pain and tachycardia. SHe was here earlier in the month and PNT was placed and she was treated for sepsis/UTI and was bacteremic at that time. She was supposed to have ESWL outpt however returns to ER with flank pain and lactic acidemia. She will be admitted for IV ABx and cultures with urology consult for possible inpatient ESWL. Home Meds Active Scripts Sulfamethoxazole W/Trimethopri (Bactrim Ds Tablet) 1 Tab Tb, 1 TAB PO BID, #14 TAB Prov:DARIUS SANTORO MD 12/05/24 Naloxone HCl (Narcan) 4 Mg/0.1 Ml Spr, 4 MG NA ONCE for 1 Day, #1 SPRAY 0 Refi lls Prov:YVON PRECIADO DO 11/15/24 Naproxen (NAPROSYN TABLET) 500 Mg Tb, 1 TAB PO BID for 30 Days, #60 TAB 1 Refill Take for moderate kidney pain. Prov:YVON PRECIADO DO 11/15/24 Tramadol Hcl (Tramadol Hcl) 50 Mg Tab, 50 MG PO Q6HP PRN for 30 Days, #30 TAB 0 Refills Prov:YVON PRECIADO DO 11/15/24 Amoxicillin & Pot Clavulanate (AUGMENTIN TABLET) 875 Mg Tb, 875 MG PO BID for 14 Days, #28 TAB 0 Refills Prov:YVON PRECIADO DO 11/15/24 Reported Medications Gabapentin (Gabapentin) 300 Mg Cap, 1 CAP PO TID for 30 Days, #90 11/13/24 Metformin Hydrochloride (Metformin Hcl) 1,000 Mg Tab, 1 TAB PO BID for 90 Days, #180 11/13/24 Glucosamine Hydrochloride (GLUCOSAMINE) 500 Mg Tab, 500 MG PO, TAB 11/12/24 Meloxicam (Meloxicam) 7.5 Mg Tab, 1 TAB PO DAILY, #30 TAB 2 Refills 11/12/24 Alendronate Sodium (Alendronate Sodium) 70 Mg Tab, 1 TAB PO QWEEKLY, #4 TAB 3 R efills 11/12/24 Atorvastatin Calcium (Lipitor) 20 Mg Tab, 1 TAB PO DAILY, #90 TAB 1 Refill 11/12/24 Semaglutide (Ozempic) 2 Mg/3 Ml Inj, 0.5 MG SC QWEEKLY for 3 Days, #28 11/12/24 Past Medical History Cardiac: No pertinent Hx Pulmonary: No pertinent Hx GI: No pertinent Hx Endocrine: IDDM Patient Family History: FH: hepatic cirrhosis G8 FATHER Review of Systems Constitutional: No symptom reported Pulmonary/Respiratory: No symptom reported Gastrointestinal: No symptom reported Genitourinary: Pain Musculoskeletal: No symptom reported Psychiatric: No symptom reported H&P Exam Vital Signs Vital Signs Date Time Temp Pulse Resp B/P (MAP) Pulse Ox O2 Delivery O2 Flow Rate FiO2 12/06/24 05:00 97.8 81 18 137/79 (98) 96 97.8 12/05/24 20:00 Room Air* 0 21 General Appeara: Well developed Neck Exam: Non-tender Pulmonary/Respiratory: Lungs clear Abdominal Exam: Soft Labs/Xrays Labs Test 12/06/24 05:30 12/05/24 17:16 12/05/24 15:19 12/05/24 12:14 Range/Units White Blood Count 6.6 # 4.4-10.8 10^3/uL Red Blood Count 4.10 4.0-5.20 10^6/uL Hemoglobin 12.5 12.2-16.2 g/dL Hematocrit 36.9 # 36.0-46.0 % Mean Corpuscular Volume 90.0 80.0-100.0 fL Mean Corpuscular Hemoglobin 30.4 28.0-32.0 pg Mean Corpuscular Hemoglobin Concent 33.8 32.0-36.0 g/dL Red Cell Distribution Width 14.0 11.8-14.3 % Platelet Count 193 140-450 10^3/uL Mean Platelet Volume 9.7 6.9-10.8 fL Neutrophils (%) (Auto) 64.9 37.0-80.0 % Lymphocytes (%) (Auto) 23.9 10.0-50.0 % Monocytes (%) (Auto) 4.3 0.0-12.0 % Eosinophils (%) (Auto) 6.3 0.0-7.0 % Basophils (%) (Auto) 0.6 0.0-2.0 % Neutrophils # (Auto) 4.3 1.6-8.6 10 ^3/uL Lymphocytes # (Auto) 1.6 0.4-5.4 10 ^3/uL Monocytes # (Auto) 0.3 0-1.3 10 ^3/uL Eosinophils # (Auto) 0.4 0-0.8 10 ^3/uL Basophils # (Auto) 0 0-0.2 10 ^3/uL Nucleated Red Blood Cells 0.0 % Troponin I High Sensitivity < 3 L </=34 ng/L Prothrombin Time 10.5 9.3-11.8 sec Prothrombin Time INR 0.99 0.9-1.15 Urine Color Light-yellow Yellow Urine Clarity Clear Clear Urine pH 6.0 5.0-9.0 Urine Specific [place] 1.011 1.001-1.035 Urine Protein Negative Negative Urine Ketones Negative Negative Urine Blood Negative Negative /uL Urine Nitrite Negative Negative Urine Bilirubin Negative Negative Urine Urobilinogen Normal Negative mg/dL Urine Leukocyte Esterase 1+ Negative /uL Urine RBC 1 0 - 4 /hpf Urine Microscopic WBC 12 H 0-5 /HPF Urine Squamous Epithelial Cells Few <5 /hpf Urine Bacteria Few H None Seen /hpf Urine Glucose Normal Normal mg/dL Test 12/05/24 12:04 12/05/24 11:03 Range/Units Lactic Acid Level 3.0 *H 0.4-2.0 mmol/L Total Bilirubin 0.8 0.2-1.0 mg/dL Aspartate Amino Transferase (AST) 23 13-40 U/L Alanine Aminotransferase (ALT) 34 7-40 U/L Alkaline Phosphatase 85 46-116 U/L Total Protein 7.5 5.7-8.2 g/dL Albumin 4.8 3.2-4.8 g/dL Assessment/Plan Primary Diagnosis 1) UTI 2) L UPJ stone, 1cm, now with in situ PNT 3) Lactic acidemia 4) DM plan; admit tele. IV ABx, cultures pending, hydration, urology consult to plan for possible inpatient ESWL next week, daily labs, will follow Plan discussed with: Other (n) DARIUS SANTORO MD Dec 06, 2024 06:54
[2024-12-06 06:59] LABS: Chloride 111 mmol/L (98-107); Glucose 127 mg/dL (74-106)
[2024-12-06] MEDS: SODIUM CHLORIDE 0.9% 1,000 ML IV SCH (07:00)
--- NOTE | 2024-12-06 10:17 | ECG ---
[facility] Test Date: 2024-12-05 Test Time: 10:55:27 Pat Name: IVONNE MARTINEZ Department: ER Room: 0240T B Gender: F [employer] It: ARIELA : 1960 Requested By: BALA EAST Order Number: [id number] Reading MD: Alex Brar Measurements Intervals [place] Rate: 84 P: 50 VA: 134 QRS: -17 QRSD: 85 T: 11 QT: 367 QTc: 434 Interpretive Statements Sinus rhythm Borderline left axis deviation Low voltage, precordial leads Abnormal R-wave progression, early transition Borderline T abnormalities, anterior leads Electronically Signed On 12-08-2024 20:22:36 PDT by Alex Brar Please click the below link to view image of tracing.
[2024-12-06] MEDS ORDERED: DEXTROSE (50%) 50ML SYRG IV PRN (16:45)
[2024-12-06] MEDS ORDERED: ACCU-CHEK COMFORT CURVE STRIP VI SCH (17:00)
[2024-12-06] MEDS: ACCU-CHEK COMFORT CURVE STRIP VI SCH (17:00)
[2024-12-06] MEDS: InsuLIN REG 1unit/0.01ml Soln (100units/ml) SC SCH (17:59)
[2024-12-06] MEDS: ACETAMINOPHEN 325 MG TAB PO PRN (21:45)
[2024-12-07] VITALS (7 sets, daily range): BP systolic 124–147; BP diastolic 52–73; PULSE 72–86; RESP 16–18; TEMP 97.4–98.3; O2SAT 93–97
--- NOTE | 2024-12-07 06:24 | DVHPN2 ---
Progress Note Date Seen: Dec 07, 2024 Medical Necessity Reason Pt with a Central, PICC or Fol: No Subjective Patient reports: No new complaints Review of Systems: HEENT:Normal, RESPIRATORY:Normal, :Abnormal Objective vital signs Vital Sign Date Time Temp Pulse Resp B/P (MAP) Pulse Ox O2 Delivery O2 Flow Rate FiO2 12/07/24 05:00 97.5 81 18 137/73 (94) 93 97.5 12/06/24 20:00 Room Air* 0 21 Total Intake and Output 12/06/24 12/06/24 12/07/24 15:00 23:00 07:00 Intake Total 800 ml 1250 ml Output Total 800 ml 500 ml Balance 0 ml 750 ml medications Current Medications Medications Dose Ordered Sig/Kenji Route Start Time Stop Time Status Last Admin Dose Admin Nitroglycerin 0.4 mg Q5MINP PRN SL 12/05/24 15:30 Morphine Sulfate 2 mg Q30M PRN IV 12/05/24 15:30 Piperacillin Sod/ Tazobactam Sod 100 ml @ 25 mls/hr Q8HR IV 12/05/24 22:00 12/07/24 05:39 25 MLS/HR Sodium Chloride 1,000 ml @ 100 mls/hr Q10H IV 12/06/24 07:00 12/07/24 04:23 100 MLS/HR Acetaminophen 650 mg Q4HPRN PRN PO 12/06/24 13:15 12/06/24 21:45 650 MG Diagnostic Test (Pha) 1 strip ACHS 12/06/24 17:00 12/06/24 21:39 1 STRIP Insulin Human Regular ACHS SC 12/06/24 17:00 12/06/24 21:44 3 UNITS Dextrose 50 ml UD PRN IV 12/06/24 16:45 Examination: GENERAL:Normal, LUNGS:Normal, CVS:Normal laboratory and microbiology Laboratory Tests 12/06/24 05:30 Test 12/06/24 05:30 Range/Units Serum Glucose 127 H 74-106 mg/dL Problem List/Assessment/Plan Problem List/Assessment/Plan 1) UTI 2) L UPJ stone, 1cm, now with in situ PNT 3) Lactic acidemia 4) DM plan; wbc nml, BCx negative, on IV Abx, hydration, urology to plan for ESWL on monday next week, will follow along, stable Plan discussed with: Other (n) DARIUS SANTORO MD Dec 07, 2024 06:24
[2024-12-07 07:26] LABS: Basophils # (auto) 0 10 ^3/uL (0-0.2); Basophils % (auto) 0.6 % (0.0-2.0); Eosinophils # (auto) 0.6 10 ^3/uL (0-0.8); Eosinophils % (auto) 7.5 % (0.0-7.0); Hematocrit 39.3 % (36.0-46.0); Hemoglobin 13.4 g/dL (12.2-16.2); Lymphocytes # (auto) 1.6 10 ^3/uL (0.4-5.4); Lymphocytes % (auto) 18.2 % (10.0-50.0); Mean Corpuscular Hemoglobin 30.7 pg (28.0-32.0); Mean Corpuscular Hgb Conc. 34.1 g/dL (32.0-36.0); Mean Corpuscular Volume 89.9 fL (80.0-100.0); Monocytes # (auto) 0.5 10 ^3/uL (0-1.3); Monocytes % (auto) 6.4 % (0.0-12.0); Neutrophils # (auto) 5.7 10 ^3/uL (1.6-8.6); Neutrophils % (auto) 67.3 % (37.0-80.0); Platelet Count (auto) 192 10^3/uL (140-450); Red Blood Cells 4.37 10^6/uL (4.0-5.20); Red Cell Distribution Width 13.8 % (11.8-14.3); White Blood Cell 8.5 10^3/uL (4.4-10.8)
[2024-12-07 07:27] LABS: Potassium 4.2 mmol/L (3.5-5.1); Sodium 142 mmol/L (136-145)
[2024-12-07 07:29] LABS: Calcium 9.3 mg/dL (8.7-10.4)
[2024-12-07 07:34] LABS: BUN/Creatinine Ratio 18.8 (10.0-20.0); Blood Urea Nitrogen 12 mg/dL (9-23)
[2024-12-07 07:39] LABS: Chloride 109 mmol/L (98-107); Glucose 128 mg/dL (74-106)
[2024-12-07 07:47] LABS: Anion Gap 10 (5-15); Carbon Dioxide 23 mmol/L (20-31)
--- NOTE | 2024-12-07 09:06 | DVHDS2 ---
New Physician D'charge PN Admitting Diagnosis Admitting Diagnosis uti renal stone Discharge Diagnosis uti Operations or Procedures none Reason(s) For Hospitalization Surgery Hospital Course 64 F who comes to ER c/o flank pain. SHe has a nephrostomy tube from before that was placed earlier this month for obstructing L UPJ stone. This admission her UA showed UTI and she had chills and tachycardia thus was admitted to hospital and started on IV Abx. Her blood cultures were negative and UCx showed >60k CFU with mixed colonies. Her WBC normalized and chem panel showes preserved renal function. The nephrostomy tube is in place and draining. She will be discharged home with PO Abx to complete course for UTI and will have outpt urology follow up to have an elective ESWL after completion of PO Abx and clearance of infection. She understands the plan of care and agrees to this. [facility] to arrange for all outpt follow up. Treatment Plan Discharge Condition of Discharge Good Disposition Home Discharge Instructions Diet: Cardiac 2g Na,low cholest Activity: No Restrictions, As Tolerated Medications: see med sheet Follow Up Care Follow Up/Referral: pcp Discharge Statement: "Patient was advised to return to the ER or call 911 if any headaches, dizziness, shortness of breath, chest pain, abdominal pain, bleeding, fevers, or worsening of medical condition. Patient was counseled about treatment plan, medications, possible side effects, patientverbalized understanding. All questions were answered to the best of my ability. This discharge took greater then 30 minutes in planning, reviewing documentation, counseling the patient, and discussing with other team members." DARIUS SANTORO MD Dec 07, 2024 09:06
[2024-12-07] MEDS ORDERED: BACDST PO (09:11)
== END 2024-12-07 18:20 | disposition home or self-care (01) | DRG 699 ==
LOC: ER 10:21 → OVERFLOW 15:19 → TELE-EAST 17:17
PROVIDERS: ADMIT Internal Medicine; ATTEND Internal Medicine
DX: T83.512A Infection and inflammatory reaction due to nephrostomy catheter, initial encounter (principal); E87.20 Acidosis, unspecified; N20.2 Calculus of kidney with calculus of ureter; E11.9 Type 2 diabetes mellitus without complications; Z87.442 Personal history of urinary calculi; Z79.899 Other long term (current) drug therapy; Z79.2 Long term (current) use of antibiotics; Z79.84 Long term (current) use of oral hypoglycemic drugs; Z79.4 Long term (current) use of insulin
CPT/HCPCS: 36415; 74176; 80048; 80053; 81001; 82962; 83605; 84484; 85025; 85610; 87040; 87081; 87086; 93005; 96361; 96365; 99291; G0378; J1815; J2543